=== PATIENT | male | born 1945 | race Caucasian/White ===

== ENCOUNTER → 2017-09-04 09:21 | Outpatient (CLI) | payer MEDICARE, MEDICAID, SELFPAY ==
--- NOTE | 2017-09-04 09:51 | RAD_ITS ---
STUDY: X-RAY - RIGHT SHOULDER REASON FOR EXAM: Male, 72 years old. pt fell on Monday and has been having right shoulder pain since TECHNIQUE: 4 view(s) of the shoulder. COMPARISON: None. FINDINGS: There is mild degenerative arthrosis of the glenohumeral articulation. There is degenerative arthrosis of the acromioclavicular joint without inferior osseous spur formation. Normal acromion. There is elevation of the humerus head consistent with full-thickness rotator cuff tear. Normal humeral head and visualized proximal humerus. The soft tissue structures are unremarkable. Normal visualized pulmonary apex. RAD/Shoulder min 2 Views IMPRESSION: There is mild degenerative arthrosis of the shoulder. There is elevation of the humerus head consistent with full-thickness rotator cuff tear. Electronically Signed: Mariam Quezada MD at 15:08 EDT Tel , Service support ,
== END ==
PROVIDERS: Visit Provider Anesthesiology Pain Medicine
DX: M25.511 Pain in right shoulder (principal); W19.XXXA Unspecified fall, initial encounter
CPT/HCPCS: 73030

== ENCOUNTER 2019-07-26 14:30 | Outpatient (RCR) | payer MEDICARE, MEDICAID, SELFPAY ==
--- NOTE | 2019-05-20 12:32 | HP.PTEVAL_ITS ---
Patient's Visit Information FARZANEH MORTON is a 73 year old M referred to Physical Therapy by Yessenia Morgan MD with a diagnosis of LBP and leg pain. Date of Evaluation: 05/20/19 Physical Therapist: Fuentes Lee PT, ATC - Visit Plan Frequency: 2x /Week Duration: 4 Weeks Plan: Postural edu, SKTC/DKTC, core strengthening ex's, LE strengthening, nustep, and HEP - Subjective Findings: Pt reports he has had LBP for greater than 4 years. Pt reports he has been under pain management for 2 years. Pt reports he has had LB injections which did take care of the pain in his R LE, but notes he continues to have pain down his L LE all the way to the foot. Pt reports his pain is intermittent in nature as he notes increased pain with prolonged ambulation. Pt reports pain will go away if he sits and rests. Pt reports sleep difficulty if he doesnt take his muscle relaxers secondary to pain. Pt reports he had xrays taken a long time ago which revealed degenerative changes. 0/10 pain at rest, 10/10 at worst (prolonged walking on concrete) - Pain LBP Pain Intensity (Out of 10): 0 Pain Intensity Range: 10 - Objective Neuro: B LE sensation is WNL to light touch. B patellar reflex= 2/3. MMT: B LE grossly 4-/5 throughout. Gait: Pt was able to ambulate approximately 200' until needing to sit down secondary to increased leg symptoms. Repeated movements: DKTC/SKTC 10 sec x 3 ea decreased pain. all ext activity increased pain. - Goals Goal 1:: Decrease LBP x 50% to aid with sleep Goal Time Frame: 4-6 Weeks Goal 2:: Increase LE strength x 1 grade to aid with ambulation Goal Time Frame: 4-6 Weeks Goal 3:: Decrease the frequency and intensity of L LE radiculopathy x 25% to aid with ambulation. Goal Time Frame: 4-6 Weeks Goal 4:: I with HEP Goal Time Frame: 4-6 Weeks - Rehabilitation Potential Physical Therapy Diagnosis: Pt has L LE radiculopathy, LBP, and intolerance for prolonged ambulation secondary to DDD Rehabilitation Potential: Good - Anticipated Interventions Patient/Client Instruction: Educate patient on: Condition, Plan of Care For the Purpose of:: To improve self management Therapeutic Exercise to Include: Strength training, Endurance training, Body mechanics, Postural training, Dynamic Lumbar Stabilization For the Purpose of:: To decrease pain, To increase ROM, To improve muscle performance and motor function Cryotherapy (ice pack, ice massage): Yes For the Purpose of:: To decrease pain Thank you for the opportunity to evaluate your patient. For Medicare and Medicare HMO plans, please review the plan of care and approve it. It will need to be FAXED BACK to us at [phone] for Medicare purposes. For Medicare only, by signing this I certify the plan of care. Please let me know if there are questions or concerns regarding this plan of care. Physician Signature: Date:
--- NOTE | 2019-06-24 14:22 | HP.PTREVAL ---
Yessenia Morgan MD, It has been my pleasure to treat FARZANEH MORTON over the last 9 visits for LBP and leg pain. Please see the progress note below for an update on the physical therapy plan of care! Subjective: Pt reports he is very sore today. Objective/Function: LBP is 8/10 on this date secondary to a fall 3 weeks ago. Pt reports L LE radiculopathy is 75% better per pt. B LE MMT 5/5 throughout. Pt is progressing well toward Rx goals but would benefit from further skilled PT to aid with decreasing LBP Plan Plan: Cont with POC 2 times per week for 4 more weeks Goals Goal 1:: Decrease LBP x 50% to aid with sleep Goal Time Frame: 4-6 Weeks Goal Progress: Progressing Goal 2:: Increase LE strength x 1 grade to aid with ambulation Goal Time Frame: 4-6 Weeks Goal Progress: Goal Met Goal 3:: Decrease the frequency and intensity of L LE radiculopathy x 25% to aid with ambulation. Goal Time Frame: 4-6 Weeks Goal Progress: Goal Met Goal 4:: I with HEP Goal Time Frame: 4-6 Weeks Goal Progress: Progressing Anticipated Interventions Patient/Client Instruction: Educate patient on: Condition, Plan of Care For the Purpose of:: To improve self management Therapeutic Exercise to Include: Strength training, Endurance training, Body mechanics, Postural training, Dynamic Lumbar Stabilization For the Purpose of:: To decrease pain, To increase ROM, To improve muscle performance and motor function Cryotherapy (ice pack, ice massage): Yes For the Purpose of:: To decrease pain Please do not hesitate to contact me at [phone] by phone or if you have questions or concerns regarding this new plan of care! Sincerely, Fuentes Lee, PT, ATC
--- NOTE | 2019-07-26 15:03 | HP.PTDCSUM ---
HP - PT D/C Summary It has been my pleasure to treat FARZANEH MORTON under orders from Dr. Yessenia Morgan MD, for the diagnosis of LBP and leg pain for a total of 17 visit(s). Discharge Date: Please see the following information for a summary of their discharge status. - Subjective Subjective: Pt is ready for discharge - Pain LBP Pain Intensity (Out of 10): 1 hands Pain Intensity (Out of 10): 7 - Overall Improvement % Improvement: 85 - Objective Objective/Function: LBP is 1/10 this date. Pt is I with HEP. LE radiculopathy is gone this date. B LE strength 5/5 throughout. Rx goals achieved - Goals Goal 1:: Decrease LBP x 50% to aid with sleep Goal Progress: Goal Met Goal 2:: Increase LE strength x 1 grade to aid with ambulation Goal Progress: Goal Met Goal 3:: Decrease the frequency and intensity of L LE radiculopathy x 25% to aid with ambulation. Goal Progress: Goal Met Goal 4:: I with HEP Goal Progress: Goal Met - Plan Plan: Discharge - D/C Information If there are questions or concerns regarding this patient's physical therapy, please feel free to call me at [phone]. Thank you for the referral of this patient. Sincerely, Fuentes Lee, PT, ATC
== END 2019-07-26 15:23 | disposition home or self-care (01) ==
LOC: PT 14:30
PROVIDERS: Referring Provider Anesthesiology Pain Medicine; Visit Provider Anesthesiology Pain Medicine
DX: M54.9 Dorsalgia, unspecified (principal); M79.606 Pain in leg, unspecified
CPT/HCPCS: 97110; 97161; 97164

== ENCOUNTER 2021-01-27 15:38 | Emergency (ER) | payer OTHER, MEDICARE, MEDICAID, SELFPAY ==
[2021-01-27 15:39] VITALS: BP 140/112; PULSE 75; RESP 20; TEMP 36.7; O2SAT 96; BMI 32.0
[2021-01-27 15:41] VITALS: BP 140/112; PULSE 75; RESP 20; TEMP 36.7; O2SAT 96
--- NOTE | 2021-01-27 15:53 | EKG12_ITS ---
Test Reason : SOB Blood Pressure : / mmHG Vent. Rate : 069 BPM Atrial Rate : 069 BPM P-R Int : 208 ms QRS Dur : 134 ms QT Int : 442 ms P-R-T Axes : 025 077 027 degrees QTc Int : 473 ms Normal sinus rhythm Right bundle branch block Abnormal ECG Confirmed by FLACO CELESTIN, BOBY ([id number]), food editor GABE PERALTA ([id number]) on 02/01/2021 10:16:15 AM Referred By: ELÍAS Confirmed By:BOBY SAM MD
[2021-01-27 15:57] VITALS: O2SAT 95
--- NOTE | 2021-01-27 16:00 | NURSING ---
NO OLD EKGS
--- NOTE | 2021-01-27 16:15 | EDS_ITS ---
HPI History of Present Illness Chief Complaint: Shortness of Breath Informant: patient Narrative Narrative: Patient is a 75-year-old male with history of prostate cancer and COVID-19 infection in May 2020, is vaccinated, unsteady gait, hypertension, anxiety and hyperlipidemia presenting for shortness of breath. Patient's been having worsening shortness of breath over the past 3 to 4 days. His notes that he seems more short of breath at night and is wheezing. Patient states he has been coughing up mucus. He states his ribs are sore because he is coughing. Patient had spirometry testing earlier this month which apparently was normal per patient report. Patient denies any sick contacts. Does report a runny nose. Denies any nasal congestion. States his throat is slightly sore from all the coughing. Denies any chest pain or leg swelling. No other complaints at this time. [facility] Medical History Hypertension Home Medications doxycycline hyclate 100 mg PO BID #14 cap 01/27/21 [Rx Last Taken Unknown] prednisone 40 mg PO DAILY #10 tab 01/27/21 [Rx Last Taken Unknown] Allergy/AdvReac Type Severity Reaction Status Date / Time No Known Allergies Allergy Verified 01/27/21 15:41 Social History Smoking Status: Unknown if ever smoked ROS ROS ED Constitutional Constitutional ED: Denies chills or fever(s) Eyes Eyes: Denies change in vision ENT ENT ED: Reports rhinorrhea and sore throat; Denies ear pain Cardiovascular Cardiovascular: Denies chest pain, orthopnea or palpitations Respiratory/Chest Respiratory/Chest: Reports cough, dyspnea, dyspnea on exertion and sputum; Denies orthopnea Gastrointestinal Gastrointestinal: Denies abdominal pain, diarrhea, nausea or vomiting Genitourinary Genitourinary ED: Denies dysuria Musculoskeletal Musculoskeletal: Denies arthralgias or myalgias Integumentary Denies rash Neurologic Neurologic: Denies headache(s) or weakness Psychiatric Psychiatric: Denies anxiety or depression EXAM Physical Exam Const Vital Signs: 01/27/21 15:39 01/27/21 15:41 01/27/21 15:57 Temperature 98.1 F 98.1 F Temperature Source Temporal Temporal Pulse Rate 75 75 Respiratory Rate 20 H 20 H Respiratory Effort Non-Labored Short of Breath Respiratory Depth Normal Respiratory Pattern Normal Blood Pressure 140/112 H 140/112 H Blood Pressure Mean 121 121 Pulse Ox 96 96 Oxygen Delivery Method Room Air Room Air Room Air 01/27/21 17:51 01/27/21 18:19 Temperature Temperature Source Pulse Rate 67 73 Respiratory Rate 24 H 12 Respiratory Effort Respiratory Depth Respiratory Pattern Blood Pressure 111/81 H 145/81 H Blood Pressure Mean 91 102 Pulse Ox 96 97 Oxygen Delivery Method Room Air Room Air Positive well nourished and well developed General Appearance ED: well developed HEENT Reports TM's clear and moist mucous membranes Negative for atraumatic Tympanic Membrane ED: Yes TM's clear Eyes PERRL Neck no lymphadenopathy, supple and no JVD Resp normal respiratory effort Auscultation: rhonchi and diminished lung sounds bilateral (bases); Negative for rales or wheezes Cardio regular rate, regular rhythm and no murmurs GI non-tender and non-distended Palpation: soft Extremity normal to inspection General Extremety ED: Negative for edema General Extremity: Negative for edema Neuro oriented x3 and CN's II-XII intact bilaterally Sensorium / Orientation: alert Motor Exam: strength 5/5 throughout Psych mental status grossly normal Thought Process: normal thought process Skin Lesions: no lesions Rashes: no rashes MDM MDM MDM Narrative Medical decision making narrative: Patient is evaluated for worsening cough and shortness of breath over the past 3 to 4 days. He appears nontoxic in no acute distress. He does have rales on exam. Chest x-ray shows hyperinflation and possible superimposed acute inflammatory changes in the lower lobes. His work- up is otherwise normal with normal HIDA study troponin, BNP and white blood cell count. No acute electrolyte abnormalities. I do not think this is cardiogenic in nature. Patient will be treated for bronchitis with steroids and also covered with doxycycline as he does have these inflammatory changes for the potential of an early pneumonia. He is ambulated emergency room does not have any hypoxia. Patient is agreeable with this plan of care. He is counseled return precautions. He is discharged home in stable condition. Lab Data Labs: Laboratory Results - last 24 hr 01/27/21 01/27/21 01/27/21 16:10 16:10 16:10 WBC 9.5 RBC 4.44 L Hgb 13.9 Hct 41.5 MCV 93.5 MCH 31.3 MCHC 33.5 RDW Std Deviation 44.9 H RDW Coeff of Yuki 13.1 Plt Count 269 MPV 9.4 Immature Gran % (Auto) 0.700 Neut % (Auto) 57.5 Lymph % (Auto) 19.8 Darke % (Auto) 10.5 H Eos % (Auto) 10.6 H Baso % (Auto) 0.9 Absolute Neuts (auto) 5.4 Absolute Lymphs (auto) 1.88 Nucleated RBC % 0 Sodium 140 Potassium 3.9 Chloride 108 H Carbon Dioxide 27.0 Anion Gap 5 BUN 14 Creatinine 1.08 Estim Creat Clear Calc 59.14 Est GFR (MDRD) Af Amer 85 Est GFR (MDRD) Non-Af 70 BUN/Creatinine Ratio 13.0 Glucose 106 Calcium 9.0 Troponin I High Sens 7 B-Natriuretic Peptide 27.8 Radiography Chest X-Ray - ED: 1 View, Read by ED Physician and Read by Radiologist Diagnostic Testing: Radiology Impression Chest X-Ray 01/27/21 16:45 IMPRESSION: Hyperinflation and possibly superimposed acute inflammatory changes in the lower lobes. Clinical correlation recommended Electronically Signed: Chavo Anderson MD at 16:58 EDT , Service support , Rhythm Strip Rhythm Strip: Sinus Rhythm Rate: 69 Ectopy: None EKG Initial EKG: Attestation: I personally reviewed and interpreted this EKG as follows: Interpretation: Sinus Rhythm and RBBB Comments: Normal sinus rhythm rate of 69 Mild right axis Nonspecific T wave inversion in 3 and V1 IN interval 208 QRS 134 QTc 4373 Prior EKG tracings: not available for review Discharge Plan Triage Chief Complaint: Shortness of Breath ED Provider: Gaye Bacon Dx/Rx/DC Orders Clinical Impression: Acute bronchitis Instructions: ED Bronchitis with Wheezing (Adult), ED Pneumonia (Adult) Prescriptions: New doxycycline hyclate 100 mg capsule 100 mg PO BID Qty: 14 RF: 0 prednisone 20 mg tablet 40 mg PO DAILY Qty: 10 RF: 0 [facility] [Primary [facility] Provider] - Activity Restrictions/Additional Instructions: I suspect you have bronchitis. The steroid should help with your cough. It is possible you have early pneumonia which is why you are getting started on antibiotics. Disposition Disposition: Home, Self Care
[2021-01-27 16:21] LABS: Absolute Lymphocyte Count 1.88 X10^3/uL (0.83-4.51); Absolute Neutrophil Count 5.4 X10^3/uL (2.0-7.7); Basophil# 0.09 X10^3/uL; Basophil% 0.9 % (0-1); Eosinophil# 1.01 X10^3/uL; Eosinophils% 10.6 % (0-5); Hematocrit 41.5 % (40-54); Hemoglobin 13.9 g/dL (13.0-16.5); Lymphocyte # 1.88 X10^3/ul (0.83-4.51); Lymphocyte % 19.8 % (19-41); Mean Corp Hgb Conc 33.5 g/dL (32-36); Mean Corpuscular Hgb 31.3 pg (27.0-32.0); Mean Corpuscular Volume 93.5 fL (80-94); Mean Platelet Vol. 9.4 fl (6.2-12.0); Monocyte% 10.5 % (0-10); NRBC Flagged by Analyzer 0 % (0-5); Neutrophil # 5.44 X10^3/uL (2.7-7.7); Neutrophil % 57.5 % (47-70); Platelet Count 269 K/mm3 (150-450); RBC Distribution Width CV 13.1 % (11.6-14.6); RBC Distribution Width SD 44.9 fl (35.1-43.9); Red Blood Count 4.44 M/mm3 (4.6-6.2); White Blood Count 9.5 K/mm3 (4.4-11.0)
[2021-01-27 16:36] LABS: Anion Gap 5 (5-15); BUN 14 mg/dL (7-18); Chloride 108 mmol/L (98-107); Creatinine, Serum 1.08 mg/dL (0.70-1.30); EST Glomerular Filtration Rate 70 mL/min (>60); Est Glom Filt Rate - Afr Amer 85 mL/min (>60); Estimated Creatinine Clearance 59.14 ml/min; Glucose 106 mg/dL (74-106); Potassium 3.9 mmol/L (3.5-5.1); Sodium Level 140 mmol/L (136-145); Troponin-I HS 7 pg/mL (3.0-78.0)
--- NOTE | 2021-01-27 16:45 | RAD_ITS ---
STUDY: X-RAY CHEST REASON FOR EXAM: Male, 75 years old. sob TECHNIQUE: AP portable COMPARISON: None. FINDINGS: Lungs are hyperinflated. There is interstitial thickening bilaterally more pronounced in the lower lobes with patchy areas of increased density possibly representing coexisting inflammatory disease.. There is no demonstrated pleural abnormality. Normal size heart. Normal mediastinum and char. Normal visualized pulmonary arteries. Mildly calcified and tortuous aortic arch and descending thoracic aorta. Dorsal spine demonstrates scoliosis and degenerative change. Normal visualized ribs, clavicles, and shoulders. There is no demonstrated abnormality of the visualized soft tissue structures of the upper abdomen. RAD/Chest 1 View (Portable) IMPRESSION: Hyperinflation and possibly superimposed acute inflammatory changes in the lower lobes. Clinical correlation recommended Electronically Signed: Chavo Anderson MD at 16:58 EDT , Service support ,
[2021-01-27 16:56] LABS: BNP,B-Type NATRIURETIC PEPTIDE 27.8 pg/mL (0-100)
[2021-01-27 17:51] VITALS: BP 111/81; PULSE 67; RESP 24; O2SAT 96
[2021-01-27 18:19] VITALS: BP 145/81; PULSE 73; RESP 12; O2SAT 97
[2021-01-27 18:55] VITALS: RESP 16
== END 2021-01-27 18:56 | disposition home or self-care (01) ==
PROVIDERS: Emergency Provider Emergency Medicine
DX: J20.9 Acute bronchitis, unspecified (principal); Z20.822 Contact with and (suspected) exposure to COVID-19; I10 Essential (primary) hypertension; E78.5 Hyperlipidemia, unspecified; Z85.46 Personal history of malignant neoplasm of prostate; Z86.16 Personal history of COVID-19
CPT/HCPCS: 71045; 80048; 83880; 84484; 85025; 87426; 93005; 99285

== ENCOUNTER 2021-05-12 16:41 | Emergency (ER) | payer OTHER, SELFPAY ==
[2021-05-12] VITALS (7 sets, daily range): BP systolic 118–153; BP diastolic 69–76; PULSE 74–88; RESP 17–20; TEMP 36.4–36.7; O2SAT 94–96; BMI 31.4
--- NOTE | 2021-05-12 16:58 | ED.VIS.DYS ---
HPI History of Present Illness Chief Complaint: Cough Informant: patient and spouse/S.O. Onset/Context/Timing Onset: Weeks (Onset 1 week ago. Got better and has gotten worse) Context: sudden Timing: Continuous and Waxes and wanes Quality: Positive for Dyspnea on exertion and Wheezing; Negative for Orthopnea and PND Current Severity: Mild Maximum Severity: Moderate Worsened by: Exertion and Coughing; Not Worsened By Lying flat Relieved by: Nothing Associated Symptoms cough and white sputum; Negative for rhinorrhea, post nasal drip, ear pain, fever, sore throat, subjective, chills or sweats Chest Pain: Positive for None Narrative Narrative: Patient is an elderly male with history of asthma who has not smoked since 1959 who presents with cough, wheezing and dyspnea on exertion. Patient had Covid 1 year ago. He has been vaccinated and has had a booster. He denies fever or chills. He denies headache, visual, ocular auditory symptoms. He denies rhinorrhea or postnasal drainage. He denies sore throat. He denies chest pain. He does report cough productive of white-colored sputum and dyspnea on exertion. He denies orthopnea or PND. He denies vomiting or diarrhea. He denies abdominal pain. He denies dysuria, frequency, urgency or hematuria. He denies history of VTE. He is not on an anticoagulant. PE Risk Factors: Negative for Cancer (Remote), OCP + Smoking + > 35, Prior DVT or PE, Recent immobilization, Recent surgery and Recent travel Prior similar symptoms: Yes Recent Illness/Hospitalization: No PFSH PFSH Medical History COVID-19 Hypertension Prostate cancer Home Medications Cbd Gummies 300 mg PO/SL DAILY 05/12/21 [History Last Taken 05/11/21] Cbd Oil 300 mg PO/SL DAILY 05/12/21 [History Last Taken 05/11/21] ascorbic acid (vitamin C) 500 mg PO DAILY 05/12/21 [History Last Taken 05/12/21] aspirin [Aspirin Low-Strength] 81 mg PO DAILY 05/12/21 [History Last Taken 05/12/21] budesonide-formoterol [Symbicort] 2 inh INHALATION BID 05/12/21 [History Last Taken 05/11/21] cholecalciferol (vitamin D3) 50 mcg PO DAILY 05/12/21 [History Last Taken 05/12/21] cyclobenzaprine [Flexeril] 10 mg PO QHS 05/12/21 [History Last Taken 05/11/21] doxycycline monohydrate 100 mg PO BID #14 capsule 05/12/21 [Rx Last Taken Unknown] fluticasone propionate [Flonase Allergy Relief] 1 spray INTRANASAL BID 05/12/21 [History Last Taken 05/12/21] hydrochlorothiazide 25 mg PO DAILY 05/12/21 [History Last Taken 05/12/21] omeprazole 20 mg PO DAILY 05/12/21 [History Last Taken 05/11/21] pravastatin 80 mg PO QHS 05/12/21 [History Last Taken 05/11/21] prednisone 60 mg PO DAILY #15 tablet 05/12/21 [Rx Last Taken Unknown] pyridoxine (vitamin B6) [Vitamin B-6] 100 mg PO DAILY 05/12/21 [History Last Taken 05/12/21] sertraline 150 mg PO QHS 05/12/21 [History Last Taken 05/11/21] Allergy/AdvReac Type Severity Reaction Status Date / Time No Known Allergies Allergy Verified 05/12/21 16:50 Surgical History H/O neck surgery Social History (Updated 05/12/21 @ 17:[address] Frank Donato MD) household members: significant other Smoking Status: Former smoker substance use type: does not use ROS ROS ED Constitutional Constitutional ED: Denies chills, fever(s), sweats or weight loss Eyes Eyes: Denies blurry vision, change in vision or diplopia ENT ENT ED: Denies ear pain, rhinorrhea or sore throat Cardiovascular Cardiovascular: Denies chest pain, orthopnea, palpitations, paroxysmal nocturnal dyspnea or racing heartbeat Respiratory/Chest Respiratory/Chest: Reports cough, dyspnea, dyspnea on exertion and sputum; Denies orthopnea or paroxysmal nocturnal dyspnea Gastrointestinal Gastrointestinal: Denies abdominal pain, constipation, diarrhea, melena, nausea or vomiting Genitourinary Genitourinary ED: Denies dysuria, hematuria or urinary frequency Musculoskeletal Musculoskeletal: Denies arthralgias, back pain, myalgias or neck pain Integumentary Denies rash Neurologic Neurologic: Denies headache(s), paresthesias or weakness Endocrine Endocrinology: Denies polydipsia, polyphagia or polyuria Hematologic/Lymphatic Hematologic/Lymphatic: Denies easy bleeding or easy bruising EXAM Physical Exam Const Vital Signs: 05/12/21 16:44 05/12/21 16:53 05/12/21 17:11 Temperature 97.6 F L 98.1 F Temperature Source Temporal Temporal Pulse Rate 77 78 74 Respiratory Rate 18 18 18 Respiratory Effort Short of Breath Respiratory Pattern Normal Blood Pressure 153/76 H 118/76 Blood Pressure Mean 101 90 Pulse Ox 96 96 Oxygen Delivery Method Room Air Room Air 05/12/21 17:17 05/12/21 18:39 05/12/21 19:09 Temperature Temperature Source Pulse Rate 76 Respiratory Rate 17 Respiratory Effort Respiratory Pattern Blood Pressure Blood Pressure Mean Pulse Ox 95 95 Oxygen Delivery Method Room Air Room Air Positive well nourished, well developed and obese General Appearance ED: well developed and NAD; Negative for pallor Nutritional Appearance: obese HEENT Reports TM's clear and moist mucous membranes HEENT Narrative: There is patent. Ears normal. atraumatic Tympanic Membrane ED: Yes TM's clear Eyes PERRL and EOMs intact bilaterally General Eye ED: Negative for pale conjunctiva or scleral icterus Neck no lymphadenopathy, supple, no meningeal signs and no JVD Resp normal respiratory effort Auscultation: wheezes expiratory wheezes, scattered wheezes and throughout Cardio regular rate, regular rhythm, S1 normal heart sound, S2 normal heart sound and no murmurs GI non-tender, non-distended and no masses Auscultation: normoactive bowel sounds Palpation: soft and tender Back/Spine no CVA tenderness and normal to inspection Extremity normal to inspection Extremity Narrative: Patient does have hair on his toes. General Extremety ED: Negative for edema or tenderness General Extremity: Negative for edema Neuro oriented x3 and CN's II-XII intact bilaterally Neuro Narrative: Patient moves all extremities. Sensorium / Orientation: alert Psych mental status grossly normal Thought Process: normal thought process Skin no wounds General Skin Exam: Negative for jaundice or pallor Lesions: no lesions Rashes: no rashes MDM MDM MDM Narrative Medical decision making narrative: With history of Covid, full vaccine and booster to help patient's symptoms are due to Covid. His significant other is not ill and had no ill contacts. He may have influenza. He states he was not immunized for influenza. He does see Dr. Jayro Conte at [facility] for his asthma/lung problems. He denies history of VTE. He denies leg pain, swelling or discoloration. He did report pain left calf after walking briskly 600 feet. Of note he has palpable pulses and he does have hair on his toes. This may represent a viral illness versus pneumonia versus influenza. Chest x-ray, work and influenza screen was obtained. Since patient has wheezing throughout with increased extra phase he was treated with Solu-Medrol, DuoNeb and albuterol. Lab Data Attestation: I reviewed the patient's lab results. Lab results narrative: White count is normal. Patient does not have any sirs criteria. Chest x-ray does reveal possible infiltrate on the right versus atelectasis there appears to be discoid atelectasis on the left. Since he improved with aerosol is not hypoxic not tachycardic or tachypneic will discharge with prescription for doxycycline, burst of prednisone follow-up with his primary care physician Dr. Garg. Labs: Laboratory Results - last 24 hr 05/12/21 05/12/21 17:05 17:05 WBC 8.6 RBC 4.62 Hgb 14.4 Hct 42.7 MCV 92.4 MCH 31.2 MCHC 33.7 RDW Std Deviation 44.9 H RDW Coeff of Yuki 13.2 Plt Count 275 MPV 9.2 Immature Gran % (Auto) 0.600 Neut % (Auto) 55.4 Lymph % (Auto) 20.7 [place] % (Auto) 10.1 H Eos % (Auto) 12.4 H Baso % (Auto) 0.8 Absolute Neuts (auto) 4.8 Absolute Lymphs (auto) 1.79 Nucleated RBC % 0 Sodium 141 Potassium 3.6 Chloride 107 Carbon Dioxide 27.0 Anion Gap 7 BUN 11 Creatinine 0.96 Estim Creat Clear Calc 66.54 Est GFR (MDRD) Af Amer 97 Est GFR (MDRD) Non-Af 80 BUN/Creatinine Ratio 11.4 Glucose 129 H Calcium 8.8 Radiography Chest X-Ray - ED: 1 View (Chronic changes with possible infiltrate right lower lobe with discoid atelectasis left lower lobe. Cardiac silhouette and size normal. Perihilar regions unremarkable. Fossa structures are unremarkable.) and Read by ED Physician Diagnostic Testing: Clinical Impression(s) from Imaging Studies Chest X-Ray 05/12/21 18:48 IMPRESSION: There is bilateral infiltrate / atelectasis. Electronically Signed: Fuentes Gusman MD at 19:13 EST , Service support , Rhythm Strip Rhythm Strip: Sinus Rhythm Rate: 79 Ectopy: None Discharge Plan Triage Chief Complaint: Cough ED Provider: Frank Donato Dx/Rx/DC Orders Clinical Impression: Community acquired pneumonia, Acute exacerbation of chronic obstructive pulmonary disease, Acute bronchospasm Instructions: ED COPD Flare, ED Pneumonia (Adult) Prescriptions: New prednisone 20 MG tablet 60 mg PO DAILY Qty: 15 RF: 0 doxycycline monohydrate 100 MG capsule 100 mg PO BID Qty: 14 RF: 0 No Action cyclobenzaprine [Flexeril] 10 mg Tablet 10 mg PO QHS RF: 0 sertraline 100 mg tablet 150 mg PO QHS RF: 0 pravastatin 80 mg tablet 80 mg PO QHS RF: 0 ascorbic acid (vitamin C) 500 mg Tablet 500 mg PO DAILY RF: 0 omeprazole 20 mg capsule,delayed release(DR/EC) 20 mg PO DAILY RF: 0 hydrochlorothiazide 25 mg tablet 25 mg PO DAILY RF: 0 pyridoxine (vitamin B6) [Vitamin B-6] 100 mg Tablet 100 mg PO DAILY RF: 0 fluticasone propionate [Flonase Allergy Relief] 50 mcg/actuation [place],Suspension 1 spray INTRANASAL BID RF: 0 budesonide-formoterol [Symbicort] 160-4.5 mcg/actuation HFA aerosol inhaler 2 inh INHALATION BID RF: 0 cholecalciferol (vitamin D3) 50 mcg (2,000 unit) Capsule 50 mcg PO DAILY RF: 0 Cbd Gummies 300 mg PO/SL DAILY RF: 0 Cbd Oil 300 mg PO/SL DAILY RF: 0 aspirin [Aspirin Low-Strength] 81 mg Tablet,Delayed Release (Dr/Ec) 81 mg PO DAILY RF: 0 [facility] Referrals: Briana Riley MD [STAFF PHYSICIAN] - 3-5 Days if not improving [facility] [Primary Care Provider] - Disposition Disposition: Home, Self Care
[2021-05-12] MEDS: MethylPREDNISolone 125 MG/2 ML Vial IV (17:11)
[2021-05-12] MEDS: Albuterol 2.5 MG/3 ML VIAL.NEB. INHALATION ×3 (17:11→18:38)
[2021-05-12] MEDS: Ipratropium/Albuterol Sulfate 3 ML AMPUL.NEB INHALATION (17:11)
[2021-05-12 17:15] LABS: Absolute Lymphocyte Count 1.79 X10^3/uL (0.83-4.51); Absolute Neutrophil Count 4.8 X10^3/uL (2.0-7.7); Basophil# 0.07 X10^3/uL; Basophil% 0.8 % (0-1); Eosinophil# 1.07 X10^3/uL; Eosinophils% 12.4 % (0-5); Hematocrit 42.7 % (40-54); Hemoglobin 14.4 g/dL (13.0-16.5); Lymphocyte # 1.79 X10^3/ul (0.83-4.51); Lymphocyte % 20.7 % (19-41); Mean Corp Hgb Conc 33.7 g/dL (32-36); Mean Corpuscular Hgb 31.2 pg (27.0-32.0); Mean Corpuscular Volume 92.4 fL (80-94); Mean Platelet Vol. 9.2 fl (6.2-12.0); Monocyte# 0.87 X10^3/uL; Monocyte% 10.1 % (0-10); NRBC Flagged by Analyzer 0 % (0-5); Neutrophil # 4.79 X10^3/uL (2.7-7.7); Neutrophil % 55.4 % (47-70); Platelet Count 275 K/mm3 (150-450); RBC Distribution Width CV 13.2 % (11.6-14.6); RBC Distribution Width SD 44.9 fl (35.1-43.9); Red Blood Count 4.62 M/mm3 (4.6-6.2); White Blood Count 8.6 K/mm3 (4.4-11.0)
[2021-05-12 17:35] LABS: Anion Gap 7 (5-15); BUN 11 mg/dL (7-18); BUN/Creat Ratio 11.4 RATIO (10-20); Calcium,Total 8.8 mg/dL (8.5-10.1); Chloride 107 mmol/L (98-107); Creatinine, Serum 0.96 mg/dL (0.70-1.30); EST Glomerular Filtration Rate 80 mL/min (>60); Est Glom Filt Rate - Afr Amer 97 mL/min (>60); Estimated Creatinine Clearance 66.54 ml/min; Glucose 129 mg/dL (74-106); Potassium 3.6 mmol/L (3.5-5.1); Sodium Level 141 mmol/L (136-145)
--- NOTE | 2021-05-12 18:48 | RAD_ITS ---
STUDY: X-RAY CHEST REASON FOR EXAM: Male, 75 years old. CHEST PAIN Productive white cough, dyspnea and wheezing throu TECHNIQUE: XR Chest 1 View COMPARISON: 8.25.21 FINDINGS: There is no demonstrated pleural abnormality. There is bilateral infiltrate / atelectasis. Normal size heart. Normal mediastinum and char. Normal visualized pulmonary arteries. There is atherosclerotic calcification of the aortic arch with tortuosity. There are diffuse degenerative changes of the visualized thoracic spine. There is degenerative osteoarthritis of the bilateral shoulders. There is no demonstrated abnormality of the visualized soft tissue structures of the upper abdomen. RAD/Chest 1 View (Portable) IMPRESSION: There is bilateral infiltrate / atelectasis. Electronically Signed: Fuentes Gusman MD at 19:13 EST , Service support ,
[2021-05-12] MEDS: Doxycycline 100 MG CAPSULE PO (20:02)
== END 2021-05-12 20:19 | disposition home or self-care (01) ==
PROVIDERS: Emergency Provider Emergency Medicine
DX: J44.0 Chronic obstructive pulmonary disease with (acute) lower respiratory infection (principal); J18.9 Pneumonia, unspecified organism; J44.1 Chronic obstructive pulmonary disease with (acute) exacerbation; I10 Essential (primary) hypertension; Z79.82 Long term (current) use of aspirin; Z79.52 Long term (current) use of systemic steroids; Z79.51 Long term (current) use of inhaled steroids; Z79.899 Other long term (current) drug therapy; Z86.16 Personal history of COVID-19; Z85.46 Personal history of malignant neoplasm of prostate; Z87.891 Personal history of nicotine dependence
CPT/HCPCS: 71045; 80048; 85025; 87804; 94640; 96374; 99285

== ENCOUNTER 2022-01-09 20:36 | Emergency (ER) | payer MEDICARE, MEDICAID, SELFPAY ==
[2022-01-09 20:36] VITALS: BP 140/111; PULSE 83; RESP 16; TEMP 37.6; O2SAT 95; BMI 33.7
--- NOTE | 2022-01-09 21:00 | EKG12_ITS ---
Test Reason : weakness Blood Pressure : / mmHG Vent. Rate : 082 BPM Atrial Rate : 082 BPM P-R Int : 248 ms QRS Dur : 132 ms QT Int : 418 ms P-R-T Axes : 024 046 -01 degrees QTc Int : 488 ms Sinus rhythm with 1st degree A-V block Right bundle branch block Abnormal ECG Confirmed by SOPHIA CELESTIN, LANIE ([id number]), editor managing director NIRANJAN BISWAS ([id number]) on 01/11/2022 9:19:04 AM Referred By: Confirmed By:LANIE CORTES MD
--- NOTE | 2022-01-09 21:01 | EDS_ITS ---
HPI History of Present Illness Chief Complaint: General Illness Narrative Narrative: 76-year-old male presenting with multiple complaints. He states that he has had some aches and pains throughout his body for about a week. He also complains of a mild headache. Denies dizziness or lightheadedness. Denies any head trauma. He is not on any anticoagulation. Patient reports that he has not taken any Tylenol or ibuprofen over the course of the last week because he is unsure if he can mix it with his current medications. He did go to urgent care last week and was tested for COVID and this was negative. Patient states he is not getting any better. He does report that he was on meloxicam but is out of this. He also complains of a cough which is worsened over the last 2 days and shortness of breath on exertion. He does however state that he is always short of breath on exertion and this is not a new symptom. He is not have any chest pain. He is eating and drinking normally. He is making normal urine and stool. He has not had any fevers. [facility] Medical History COPD (chronic obstructive pulmonary disease) COVID-19 Hypertension Prostate cancer Home Medications aspirin 81 mg tablet,delayed release 81 mg PO DAILY HEALTH MAINTENANCE 05/12/21 [History Last Taken 05/12/21] budesonide-formoterol HFA 160 mcg-4.5 mcg/actuation aerosol inhaler (Symbicort) 2 inh inhalation BID COPD 05/12/21 [History Last Taken 05/11/21] cholecalciferol (vitamin D3) 50 mcg (2,000 unit) capsule 50 mcg PO DAILY SUPPLEMENT 05/12/21 [History Last Taken 05/12/21] cyclobenzaprine 10 mg tablet 10 mg PO TID PRN muscle spasms 05/12/21 [History Last Taken 05/11/21] hydrochlorothiazide 25 mg tablet 25 mg PO DAILY BP 05/12/21 [History Last Taken 05/12/21] omeprazole 20 mg capsule,delayed release 20 mg PO DAILY GERD 05/12/21 [History Last Taken 05/11/21] pravastatin 80 mg tablet 80 mg PO QHS CHOLESTEROL 05/12/21 [History Last Taken 05/11/21] sertraline 100 mg tablet 150 mg PO QHS DEPRESSION 05/12/21 [History Last Taken 05/11/21] ammonium lactate 12 % topical cream 1 applic topical DAILY dry skin 01/09/22 [History Last Taken Unknown] garlic extract 500 mg capsule 500 mg PO BID supplement 01/09/22 [History Last Taken Unknown] meloxicam 7.5 mg tablet 1 tab PO DAILY arthritis 01/09/22 [History Last Taken Unknown] meloxicam 7.5 mg tablet 7.5 mg PO DAILY #20 tabs 01/09/22 [Rx Last Taken Unknown] multivitamin 1 tab PO DAILY supplement 01/09/22 [History Last Taken Unknown] zinc sulfate 66 mg tablet (Zinc-15) 66 mg PO DAILY supplement 01/09/22 [History Last Taken Unknown] Allergy/AdvReac Type Severity Reaction Status Date / Time gabapentin Allergy Other Verified 01/09/22 20:41 Surgical History H/O neck surgery Social History household members: significant other Smoking Status: Former smoker substance use type: does not use ROS ROS ED Constitutional Constitutional ED: Reports chills; Denies fever(s) Eyes Eyes: Denies change in vision or diplopia ENT ENT ED: Denies rhinorrhea or sore throat Cardiovascular Cardiovascular: Denies chest pain or palpitations Respiratory/Chest Respiratory/Chest: Reports cough, dyspnea and dyspnea on exertion Gastrointestinal Gastrointestinal: Denies abdominal pain or constipation Genitourinary Genitourinary ED: Denies dysuria Musculoskeletal Musculoskeletal: Denies arthralgias Integumentary Denies abscess Neurologic Neurologic: Reports headache(s); Denies paresthesias or weakness EXAM Physical Exam Const Vital Signs: 01/09/22 20:36 01/09/22 20:52 01/09/22 21:14 Temperature 99.7 F H Temperature Source Temporal Pulse Rate 83 Respiratory Rate 16 Respiratory Effort Normal Respiratory Pattern Normal Blood Pressure 140/111 H Blood Pressure Mean 120 Pulse Ox 95 Oxygen Delivery Method Room Air Room Air Positive well nourished General Appearance ED: NAD; Negative for pallor HEENT Reports moist mucous membranes Negative for trauma Eyes PERRL and EOMs intact bilaterally General Eye ED: Negative for pale conjunctiva or scleral icterus Chest Wall inspection of chest normal Resp normal respiratory effort and clear to auscultation bilaterally Auscultation: Negative for rales, rhonchi or wheezes Cardio regular rate and regular rhythm GI normal to inspection, nondistended, normoactive bowel sounds Back/Spine no CVA tenderness Neuro oriented x3, CN's II-XII intact bilaterally and no sensory deficits noted Sensorium / Orientation: alert and orientation impaired Psych mental status grossly normal Skin no wounds General Skin Exam: Negative for jaundice or pallor MDM MDM MDM Narrative Medical decision making narrative: Patient presenting with multiple complaints. 1 of which is a headache. This is low-grade and he does not have any symptoms of photophobia or phonophobia. He is not having dizziness or lightheadedness. Is not had any head trauma. He has no focal neurologic deficits. Patient has not treated this with Tylenol or ibuprofen. I do not believe he needs a head CT based on his symptoms. Patient is also complaining of a cough and shortness of breath which she has chronically. He states he can walk about 10 to 12 feet currently. He reports that he usually has to use an electric chair when he goes to the grocery store at [facility]. He does not believe the shortness of breath is new but he does express that he has a mild cough. He was already tested for COVID-19 7 days ago and this was negative. He is not hypoxic, tachypneic, tachycardic. His lungs are clear to auscultation. He is not hypoxic, tachypneic, tachycardic. Chest x-ray on my interpretation is no acute cardiopulmonary process and the radiolo gist agree. When I asked the patient what his greatest concern is he points to his elbows into his hands where he has chronic arthritis. He was previously on meloxicam but is out of this. Since he is not supplementing it with any Tylenol or ibuprofen I suspect this is why this is bothering him. I do not believe he needs any imaging of his extremities. An EKG was obtained for the dyspnea on ex ertion and this is normal sinus rhythm with a first-degree AV block at a ventricular rate of 82 bpm without sign of ischemic change on my interpretation. CBC and BMP are unremarkable. High-sensitivity troponin is 5. I will start the patient back on his meloxicam. He is to follow-up with his PCP outpatient. Return precautions were discussed. Impression: 1. Arthralgias 2. Dyspnea 3. Weakness 4. Headache Lab Data Attestation: I reviewed the patient's lab results. Labs: Laboratory Results - last 24 hr 01/09/22 01/09/22 21:14 21:14 WBC 8.6 RBC 4.10 L Hgb 13.0 Hct 37.6 L MCV 91.7 MCH 31.7 MCHC 34.6 RDW Std Deviation 44.3 H RDW Coeff of Yuki 13.1 Plt Count 229 MPV 9.1 Immature Gran % (Auto) 0.500 Neut % (Auto) 75.7 H Lymph % (Auto) 7.6 L [place] % (Auto) 12.2 H Eos % (Auto) 3.4 Baso % (Auto) 0.6 Absolute Neuts (auto) 6.5 Absolute Lymphs (auto) 0.65 L Nucleated RBC % 0 Sodium 135 L Potassium 4.3 Chloride 107 Carbon Dioxide 23.0 Anion Gap 5 BUN 16 Creatinine 1.14 Estim Creat Clear Calc 51.67 Est GFR (MDRD) Af Amer 80 Est GFR (MDRD) Non-Af 66 BUN/Creatinine Ratio 14.0 Glucose 102 Calcium 8.6 Troponin I High Sens 5 Radiography Diagnostic Testing: Clinical Impression(s) from Imaging Studies Chest X-Ray 01/09/22 21:20 IMPRESSION: Poor inspiration with some bibasilar atelectasis. Electronically Signed: Srinivasan Vergara MD at 21:51 EDT Reading Location ID and State: [facility] / MD Tel , Service support , Discharge Plan Triage Chief Complaint: General Illness ED Provider: Cy Acevedo Dx/Rx/DC Orders Instructions: Self-Care for Headaches, Arthritis: Exercise, ED Dyspnea Prescriptions: New meloxicam 7.5 mg tablet 7.5 mg PO DAILY Qty: 20 0RF No Action cyclobenzaprine [Flexeril] 10 mg Tablet 10 mg PO TID PRN (Reason: muscle spasms) sertraline 100 mg tablet 150 mg PO QHS pravastatin 80 mg tablet 80 mg PO QHS omeprazole 20 mg capsule,delayed release(DR/EC) 20 mg PO DAILY hydrochlorothiazide 25 mg tablet 25 mg PO DAILY budesonide-formoterol [Symbicort] 160-4.5 mcg/actuation HFA aerosol inhaler 2 inh INHALATION BID cholecalciferol (vitamin D3) 50 mcg (2,000 unit) Capsule 50 mcg PO DAILY aspirin [Aspirin Low-Strength] 81 mg Tablet,Delayed Release (Dr/Ec) 81 mg PO DAILY multivitamin Tablet 1 tab PO DAILY meloxicam 7.5 mg tablet 1 tab PO DAILY Label Comments: TAKE 1 TABLET BY MOUTH ONCE DAILY WITH FOOD ammonium lactate 12 % cream 1 applic TOPICAL DAILY Zinc-15 66 mg Tablet 66 mg PO DAILY garlic extract 500 mg Capsule 500 mg PO BID [facility] [[facility] Provider[facility] - Disposition Disposition: Home, Self Care
[2022-01-09] MEDS: Ketorolac 15 MG/ML Vial IV (21:15)
--- NOTE | 2022-01-09 21:20 | RAD_ITS ---
STUDY: X-RAY CHEST REASON FOR EXAM: Male, 76 years old. chest pain TECHNIQUE: Single AP portable view of the chest. COMPARISON: 05/12/2021 FINDINGS: Poor inspiration with some bibasilar atelectasis. There is no demonstrated pleural abnormality. Normal size heart. Normal mediastinum and char. Normal visualized pulmonary arteries. Normal visualized aortic arch and descending thoracic aorta. Normal visualized thoracic spine. Normal visualized ribs, clavicles, and shoulders. There is no demonstrated abnormality of the visualized soft tissue structures of the upper abdomen. RAD/Chest 1 View (Portable) IMPRESSION: Poor inspiration with some bibasilar atelectasis. Electronically Signed: Srinivasan Vergara MD at 21:51 EDT ,
[2022-01-09 21:21] LABS: Absolute Lymphocyte Count 0.65 X10^3/uL (0.83-4.51); Absolute Neutrophil Count 6.5 X10^3/uL (2.0-7.7); Basophil# 0.05 X10^3/uL; Basophil% 0.6 % (0-1); Eosinophil# 0.29 X10^3/uL; Eosinophils% 3.4 % (0-5); Hematocrit 37.6 % (40-54); Lymphocyte # 0.65 X10^3/ul (0.83-4.51); Lymphocyte % 7.6 % (19-41); Mean Corp Hgb Conc 34.6 g/dL (32-36); Mean Corpuscular Hgb 31.7 pg (27.0-32.0); Mean Corpuscular Volume 91.7 fL (80-94); Mean Platelet Vol. 9.1 fl (6.2-12.0); Monocyte# 1.05 X10^3/uL; Monocyte% 12.2 % (0-10); NRBC Flagged by Analyzer 0 % (0-5); Neutrophil # 6.52 X10^3/uL (2.7-7.7); Neutrophil % 75.7 % (47-70); Platelet Count 229 K/mm3 (150-450); RBC Distribution Width CV 13.1 % (11.6-14.6); RBC Distribution Width SD 44.3 fl (35.1-43.9); White Blood Count 8.6 K/mm3 (4.4-11.0)
[2022-01-09 21:44] LABS: Anion Gap 5 (5-15); BUN 16 mg/dL (7-18); Calcium,Total 8.6 mg/dL (8.5-10.1); Chloride 107 mmol/L (98-107); Creatinine, Serum 1.14 mg/dL (0.70-1.30); EST Glomerular Filtration Rate 66 mL/min (>60); Est Glom Filt Rate - Afr Amer 80 mL/min (>60); Estimated Creatinine Clearance 51.67 ml/min; Glucose 102 mg/dL (74-106); Potassium 4.3 mmol/L (3.5-5.1); Sodium Level 135 mmol/L (136-145); Troponin-I HS 5 pg/mL (3.0-78.0)
[2022-01-09 22:50] VITALS: BP 108/48; PULSE 78; RESP 19; O2SAT 96
== END 2022-01-09 22:57 | disposition home or self-care (01) ==
PROVIDERS: Emergency Provider Student in an Organized Health Care Education/Training Program; Visit Provider Student in an Organized Health Care Education/Training Program
DX: M19.042 Primary osteoarthritis, left hand (principal); J44.9 Chronic obstructive pulmonary disease, unspecified; M19.041 Primary osteoarthritis, right hand; M19.022 Primary osteoarthritis, left elbow; M19.021 Primary osteoarthritis, right elbow; R53.1 Weakness; I10 Essential (primary) hypertension; R51.9 Headache, unspecified; R05.9 Cough, unspecified; R06.02 Shortness of breath; Z79.82 Long term (current) use of aspirin; Z79.1 Long term (current) use of non-steroidal anti-inflammatories (NSAID); Z79.899 Other long term (current) drug therapy; Z85.46 Personal history of malignant neoplasm of prostate; Z87.891 Personal history of nicotine dependence
CPT/HCPCS: 71045; 80048; 84484; 85025; 93005; 96374; 99284

== ENCOUNTER 2022-07-17 18:25 | Emergency (ER) | payer MEDICARE, MEDICAID, SELFPAY ==
[2022-07-17 18:28] VITALS: BP 118/59; PULSE 65; RESP 18; TEMP 36.4; O2SAT 96; BMI 29.0
--- NOTE | 2022-07-17 18:45 | CT_ITS ---
INDICATION: head injury EXAMINATION: CT BRAIN - CT Head or Brain W/O Contrast Injection TECHNIQUE: Multiple axial images were obtained of the head without intravenous contrast. A radiation dose optimization technique was used for this scan. IV Contrast dosage and agent: None. COMPARISON: None FINDINGS: BRAIN PARENCHYMA: No intra- or extra-axial hemorrhage. No evidence of acute infarct. No intracranial mass or mass effect. Unremarkable white matter for age. There is preservation of the acosta/white matter interface. Posterior fossa structures are unremarkable. Carotid and vertebral atherosclerosis. CSF SPACES: Cerebral volume appropriate for age. No hydrocephalus. Basal cisterns are patent. CALVARIUM, SKULL BASE, PARANASAL SINUSES AND MASTOID AIR CELLS: Posterior skull base surgical change noted. No acute osseous finding. Diffuse acute ethmoid and maxillary sinus mucoperiosteal thickening. Mastoid air cells are clear. ORBITS: Both globes, extraocular muscles, optic nerves and retrobulbar fat appear unremarkable. ASPECTS Score for Acute Strokes: 10 CT/Brain/Head without Contrast IMPRESSION: No CT evidence of acute intracranial hemorrhage or injury. Electronically Signed: Quinton Luna MD at 19:38 EST ,
--- NOTE | 2022-07-17 18:45 | CT_ITS ---
INDICATION: neck pain EXAMINATION: CT CERVICAL SPINE - CT Spine Cervical W/O Contrast Injection TECHNIQUE: Helically acquired images were obtained of the cervical spine. 2D reformatted images were reviewed. A radiation dose optimization technique was used for this scan. IV Contrast dosage and agent: None. COMPARISON: None. FINDINGS: VERTEBRAE: No fracture or acute compression deformity. No discrete lytic or blastic abnormality. Preserved cervical lordosis with degenerative grade 1 anterolisthesis C4 on C5. Posterior element cerclage at C1-C2. Osseous fusion of posterior elements C2 C3 C4. Normal craniocervical junction and cervicothoracic junction. DISCS and SPINAL CANAL: Diffuse disc height loss with small posterior disc osteophyte most prominent at C6-C7 with mild spinal canal narrowing. Uncovering of the posterior superior disc at C4-C5 with mild spinal canal narrowing. Diffuse facet arthropathy together with listhesis cause up to severe neural foraminal stenosis at C4-C5. NECK SOFT TISSUES: No prevertebral soft tissue swelling. There is no cervical adenopathy. LUNG APICES: Clear. CT/Spine Cervical without Contras IMPRESSION: No evidence of acute cervical spinal fracture. Spondylosis and prior upper cervical posterior element surgical change as above. Electronically Signed: Quinton Luna MD at 19:45 EST Reading Location ID and State: [facility] / [place] Tel , Service support ,
--- NOTE | 2022-07-17 18:49 | EX.ED.DYSGE1 ---
HPI <JAZMYN Palmer - Last Filed: 07/17/22 20:19> History of Present Illness Chief Complaint: Fall Narrative Narrative: Patient is a 76-year-old male with history of CAD, hypertension, chronic neck and back pain. Patient presents to the emergency department after mechanical fall. Patient tripped over his cat, striking his forehead on a doorknob, turning back around striking his back and hitting the back of his head. Patient also complains of shoulder and hand pain. He denies any LOC. Patient is currently not on any blood thinners other than 81 mg aspirin. He was able get himself up. Secondary to the pain, soreness in his neck, head as well as the shoulder is here for evaluation. PFS <JAZMYN Palmer - Last Filed: 07/17/22 20:19> [facility] Medical History COPD (chronic obstructive pulmonary disease) COVID-19 Hypertension Prostate cancer Home Medications aspirin 81 mg tablet,delayed release 81 mg PO DAILY HEALTH MAINTENANCE 05/12/21 [History Last Taken 05/12/21] budesonide-formoterol HFA 160 mcg-4.5 mcg/actuation aerosol inhaler (Symbicort) 2 inh inhalation BID COPD 05/12/21 [History Last Taken 05/11/21] cholecalciferol (vitamin D3) 50 mcg (2,000 unit) capsule 50 mcg PO DAILY SUPPLEMENT 05/12/21 [History Last Taken 05/12/21] cyclobenzaprine 10 mg tablet 10 mg PO TID PRN muscle spasms 05/12/21 [History Last Taken 05/11/21] hydrochlorothiazide 25 mg tablet 25 mg PO DAILY BP 05/12/21 [History Last Taken 05/12/21] omeprazole 20 mg capsule,delayed release 20 mg PO DAILY GERD 05/12/21 [History Last Taken 05/11/21] pravastatin 80 mg tablet 80 mg PO QHS CHOLESTEROL 05/12/21 [History Last Taken 05/11/21] sertraline 100 mg tablet 150 mg PO QHS DEPRESSION 05/12/21 [History Last Taken 05/11/21] ammonium lactate 12 % topical cream 1 applic topical DAILY dry skin 01/09/22 [History Last Taken Unknown] garlic extract 500 mg capsule 500 mg PO BID supplement 01/09/22 [History Last Taken Unknown] meloxicam 7.5 mg tablet 1 tab PO DAILY arthritis 01/09/22 [History Last Taken Unknown] meloxicam 7.5 mg tablet 7.5 mg PO DAILY #20 tabs 01/09/22 [Rx Last Taken Unknown] multivitamin 1 tab PO DAILY supplement 01/09/22 [History Last Taken Unknown] zinc sulfate 66 mg tablet (Zinc-15) 66 mg PO DAILY supplement 01/09/22 [History Last Taken Unknown] Allergy/AdvReac Type Severity Reaction Status Date / Time gabapentin Allergy Other Verified 07/17/22 18:29 Surgical History H/O neck surgery Social History household members: significant other Smoking Status: Former smoker substance use type: does not use ROS <JAZMYN Palmer - Last Filed: 07/17/22 20:19> ROS ED ROS Narrative Constitutional: Negative for fever, chills, weight loss, weakness Eyes: Negative for vision loss, vision change, double vision ENT: Negative for any sore throat, ear pain, congestion Cardiovascular: Negative for any chest pain, tightness, palpitations Respiratory: Negative for any cough, sputum production, hemoptysis, dyspnea, dyspnea on exertion, orthopnea Gastrointestinal: Negative for any abdominal pain, nausea, vomiting, diarrhea, constipation, blood in stool, blood in vomit : Negative for any urinary frequency, dysuria, retention, blood in urine Muscle skeletal: Negative for any muscle joint pain, stiffness, myalgias, arthralgias, back pain. Positive for neck pain, right shoulder pain, right hand pain Neurological: Negative for any syncope, numbness or tingling, dizziness. Positive for headache Skin: Negative for any rashes, lumps, itching, abrasions, lacerations Psychiatric: Negative for any depression, anxiety, stress, suicidal ideation, homicidal ideation Hematologic: Negative for any easy bruising, excessive bruising, easy bleeding Allergies: Negative for any eczema, hives, rash EXAM <JAZMYN Palmer - Last Filed: 07/17/22 20:19> Physical Exam Narrative Exam Narrative: Vital signs reviewed. HEET: Head normocephalic atraumatic, TMs clear bilaterally. Posterior pharynx is clear, moist mucous membranes. Nares clear bilaterally. Pupils are equal round reactive to light. Negative for any hemotympanum, negative for any septal hematoma. There is no signs or symptoms of trauma. Neck: Supple with no lymphadenopathy or tenderness. No signs of meningismus, negative jolt sign. Cardiac: Regular rate and rhythm no murmurs gallops or rubs, equal peripheral pulses bilaterally. Respiratory: Lungs clear to auscultation bilaterally. No chest tenderness. Abdomen: Soft, nontender, nondistended. No abdominal bruit or pulsatile masses. No hepatosplenomegaly Extremities: No peripheral edema, no signs of gross trauma or deformity. Active full range of motion of all extremities. Patient does have pain to the anterior right shoulder however patient is able to move his shoulder. There is no deformity noted. Patient has no neurological focal deficit. No numbness or tingling. +2 radial pulse. Neuro: Cranial nerves II through XII intact, no focal neurological deficits. Skin: Clean dry and intact with no rash, purpura, petechiae, vesicles or pustules. Backs/flank: No CVA tenderness, no midline spinal tenderness, no deformity. Psych: Normal mood and affect. No SI, HI or acute psychosis. Const Vital Signs: 07/17/22 18:28 07/17/22 19:19 Temperature 97.5 F L Temperature Source Temporal Pulse Rate 65 Respiratory Rate 18 Respiratory Effort Normal Non-Labored Respiratory Depth Normal Respiratory Pattern Normal Blood Pressure 118/59 L Blood Pressure Mean 78 Pulse Ox 96 Oxygen Delivery Method Room Air Room Air <Dr. Cy Acevedo DO - Last Filed: 07/17/22 22:01> Physical Exam Const Vital Signs: 07/17/22 18:28 07/17/22 19:19 Temperature 97.5 F L Temperature Source Temporal Pulse Rate 65 Respiratory Rate 18 Respiratory Effort Normal Non-Labored Respiratory Depth Normal Respiratory Pattern Normal Blood Pressure 118/59 L Blood Pressure Mean 78 Pulse Ox 96 Oxygen Delivery Method Room Air Room Air [facility] <JAZMYN Palmer - Last Filed: 07/17/22 20:19> MDM Radiography Diagnostic Testing: Clinical Impression(s) from Imaging Studies Brain CT 07/17/22 18:45 IMPRESSION: No CT evidence of acute intracranial hemorrhage or injury. Electronically Signed: Quinton Luna MD at 19:38 EST , Cervical Spine CT 07/17/22 18:45 IMPRESSION: No evidence of acute cervical spinal fracture. Spondylosis and prior upper cervical posterior element surgical change as above. Electronically Signed: Quinton Luna MD at 19:45 EST , Hand X-Ray 07/17/22 19:14 IMPRESSION: Findings concerning for acute fourth proximal phalanx fracture. Electronically Signed: Quinton Luna MD at 19:56 EST , Shoulder X-Ray 07/17/22 19:14 IMPRESSION: No evidence of acute injury. Degenerative changes as above. Electronically Signed: Quinton Luna MD at 19:57 EST , Treatment and Re-Evaluation Narrative: All radiologic examinations were read, reviewed by the emergency department attending. From these reads, a plan of care will be put in place. Patient appears well, patient appears nontoxic, vital signs are stable. Patient presents to the emergency department with complaints of a mechanical fall injuring his head, neck, right shoulder, right hand. Patient received multiple radiologic exams. Patient CT of the brain, cervical spine were grossly unremarkable. Patient's x-rays of the right shoulder show degenerative changes however no acute process. Patient's right hand x-ray shows a concern for fourth proximal phalanx fracture. On reevaluation, the patient did have a fracture to this area 2 months ago, he is currently receiving therapy for this. However patient will be placed in a finger splint for home. He will continue his physical therapy. At this time, there is no evidence of suspect any intracranial hemorrhage, shoulder dislocation or fracture. Patient will follow-up outpatient, he was given a Iola here with relief. He will continue to take Tylenol, ibuprofen. Patient stable for discharge and given return precaution. I did give the same discharge instructions to the patient's spouse that is in the room with him. <Dr. Cy Acevedo, DO - Last Filed: 07/17/22 22:01> [facility] Narrative Medical decision making narrative: This patient was seen with a PA/BRUSH MACHINE SETTER Individually assessed they patient including history and physical. I have reviewed everything on the chart that is available and agree with the documentation provided by the PA/BRUSH MACHINE SETTER including discussion about the assessment, treatment plan, discussion, and return precautions. Patient appears well, patient appears nontoxic, vital signs are stable. Patient presents to the emergency department with complaints of a mechanical fall injuring his head, neck, right shoulder, right hand. Patient received multiple radiologic exams. Patient CT of the brain, cervical spine were grossly unremarkable. Patient's x-rays of the right shoulder on my interpretation show degenerative changes however no acute process. Patient's right hand x-ray shows a concern for fourth proximal phalanx fracture on my interpretation. On reevaluation, the patient did have a fracture to this area 2 months ago, he is currently receiving therapy for this. However patient will be placed in a finger splint for home. He will continue his physical therapy. At this time, there is no evidence of suspect any intracranial hemorrhage, shoulder dislocation or fracture. Patient will follow-up outpatient, he was given a Iola here with relief. He will continue to take Tylenol, ibuprofen. Patient stable for discharge and given return precaution. I did give the same discharge instructions to the patient's spouse that is in the room with him. Lab Data Attestation: I reviewed the patient's lab results. Radiography Diagnostic Testing: Clinical Impression(s) from Imaging Studies Brain CT 07/17/22 18:45 IMPRESSION: No CT evidence of acute intracranial hemorrhage or injury. Electronically Signed: Quinton Luna MD at 19:38 EST , Cervical Spine CT 07/17/22 18:45 IMPRESSION: No evidence of acute cervical spinal fracture. Spondylosis and prior upper cervical posterior element surgical change as above. Electronically Signed: Quinton Luna MD at 19:45 EST , Hand X-Ray 07/17/22 19:14 IMPRESSION: Findings concerning for acute fourth proximal phalanx fracture. Electronically Signed: Quinton Luna MD at 19:56 EST , Shoulder X-Ray 07/17/22 19:14 IMPRESSION: No evidence of acute injury. Degenerative changes as above. Electronically Signed: Quinton Luna MD at 19:57 EST , Treatment and Re-Evaluation Narrative: All radiologic examinations were read, reviewed by the emergency department attending. From these reads, a plan of care will be put in place. Discharge Plan Triage Chief Complaint: Fall ED Midlevel Provider: Tawanda Hendrickson ED Provider: Cy Acevedo Dx/Rx/DC Orders Clinical Impression: Fall, Head injury, Cervical muscle strain, Finger fracture Instructions: Concussion Dc, ED Fracture, Finger, Closed, ED Neck Sprain or Strain Prescriptions: No Action cyclobenzaprine [Flexeril] 10 mg Tablet 10 mg PO TID PRN (Reason: muscle spasms) sertraline 100 mg tablet 150 mg PO QHS pravastatin 80 mg tablet 80 mg PO QHS omeprazole 20 mg capsule,delayed release(DR/EC) 20 mg PO DAILY hydrochlorothiazide 25 mg tablet 25 mg PO DAILY budesonide-formoterol [Symbicort] 160-4.5 mcg/actuation HFA aerosol inhaler 2 inh INHALATION BID cholecalciferol (vitamin D3) 50 mcg (2,000 unit) Capsule 50 mcg PO DAILY aspirin [Aspirin Low-Strength] 81 mg Tablet,Delayed Release (Dr/Ec) 81 mg PO DAILY multivitamin Tablet 1 tab PO DAILY meloxicam 7.5 mg tablet 1 tab PO DAILY Label Comments: TAKE 1 TABLET BY MOUTH ONCE DAILY WITH FOOD ammonium lactate 12 % cream 1 applic TOPICAL DAILY Zinc-15 66 mg Tablet 66 mg PO DAILY garlic extract 500 mg Capsule 500 mg PO BID meloxicam 7.5 mg tablet 7.5 mg PO DAILY Qty: 20 0RF [facility] [Primary Care Provider] - Activity Restrictions/Additional Instructions: Continue to use the finger splint for comfort. Follow-up with physical therapy. Disposition Disposition: Home, Self Care Discharge Date/Time: 07/17/22 20:37
--- NOTE | 2022-07-17 19:14 | RAD_ITS ---
INDICATION: fall EXAMINATION/TECHNIQUE: X-RAY - RIGHT XR Hand Min 3 Views 3 VIEWS COMPARISON: None. FINDINGS: SOFT TISSUES: No soft tissue swelling or gas. No radiopaque foreign body. BONES/JOINTS: Foreshortened appearance of the fourth proximal phalanx with concern for osseous impaction and osseous overlap. Diffuse joint space narrowing and mild osteophyte formation... No sclerotic or destructive changes observed. RAD/Hand Min 3 Views IMPRESSION: Findings concerning for acute fourth proximal phalanx fracture. Electronically Signed: Quinton Luna MD at 19:56 EST ,
--- NOTE | 2022-07-17 19:14 | RAD_ITS ---
INDICATION: fall EXAMINATION/TECHNIQUE: X-RAY - RIGHT XR Shoulder Min 2 Views 4 VIEWS COMPARISON: None. FINDINGS: SOFT TISSUES: No soft tissue swelling or gas. No radiopaque foreign body. BONES/JOINTS: Normal glenohumeral alignment with mild degenerative change. Normal acromioclavicular alignment with moderate degenerative change. No fracture lucency. No Hill-Sachs or Bankart lesion. RAD/Shoulder min 2 Views IMPRESSION: No evidence of acute injury. Degenerative changes as above. Electronically Signed: Quinton Luna MD at 19:57 EST ,
[2022-07-17] MEDS: HYDROcodone Bitartrate/Apap 5/325 Tablet PO (19:26)
== END 2022-07-17 20:37 | disposition home or self-care (01) ==
PROVIDERS: Emergency Provider Student in an Organized Health Care Education/Training Program; Visit Provider Student in an Organized Health Care Education/Training Program
DX: S62.614A Displaced fracture of proximal phalanx of right ring finger, initial encounter for closed fracture (principal); J44.9 Chronic obstructive pulmonary disease, unspecified; S09.90XA Unspecified injury of head, initial encounter; I10 Essential (primary) hypertension; Z87.891 Personal history of nicotine dependence; I25.10 Atherosclerotic heart disease of native coronary artery without angina pectoris; M19.011 Primary osteoarthritis, right shoulder; S16.1XXA Strain of muscle, fascia and tendon at neck level, initial encounter; W01.198A Fall on same level from slipping, tripping and stumbling with subsequent striking against other object, initial encounter
CPT/HCPCS: 70450; 72125; 73030; 73130; 99283

== ENCOUNTER 2022-12-26 15:15 | Emergency (ER) | payer MEDICARE, MEDICAID, SELFPAY ==
[2022-12-26 15:16] VITALS: BP 123/83; PULSE 66; RESP 14; TEMP 36.7; O2SAT 97; BMI 32.5
--- NOTE | 2022-12-26 15:39 | EX.ED.GENINJ ---
HPI History of Present Illness Chief Complaint: Chest Other Informant: patient and spouse/S.O. Onset/Context/Timing Onset: Today and Hours Mechanism/Context: Blunt Injury and Fall Location of pain/injuries: - (Anterior chest) Quality of Pain: Dull and Aching Location: Central anterior chest Current Severity: Mild Maximum Severity: Moderate Worsened by: Movement Relieved by: Rest Associated Symptoms Associated Symptoms: Negative for Parasthesias, Weakness, Loss of function, Inability to ambulate or Loss of consciousness Narrative Narrative: Patient is a 77-year-old male who was carrying a [employer] tote. He fell. He landed on the toe. Complains of pain over the anterior central chest. He denies head trauma. Not on anticoagulant. Denies visual, ocular auditory symptoms. He denies increased shortness of breath from baseline. He has a history of COPD. He does have pain with movement and deep breathing. He denies abdominal pain. Denies back pain. He has no other symptoms or complaints. Tetanus Immunization: 5-10 years Prior similar symptoms: No Recent Illness/Hospitalization: No PFSH PFSH Medical History COPD (chronic obstructive pulmonary disease) COVID-19 Hypertension Prostate cancer Home Medications aspirin 81 mg tablet,delayed release 81 mg PO DAILY HEALTH MAINTENANCE 05/12/21 [History Last Taken 05/12/21] budesonide-formoterol HFA 160 mcg-4.5 mcg/actuation aerosol inhaler (Symbicort) 2 inh inhalation BID COPD 05/12/21 [History Last Taken 05/11/21] cholecalciferol (vitamin D3) 50 mcg (2,000 unit) capsule 50 mcg PO DAILY SUPPLEMENT 05/12/21 [History Last Taken 05/12/21] cyclobenzaprine 10 mg tablet 10 mg PO TID PRN muscle spasms 05/12/21 [History Last Taken 05/11/21] hydrochlorothiazide 25 mg tablet 25 mg PO DAILY BP 05/12/21 [History Last Taken 05/12/21] omeprazole 20 mg capsule,delayed release 20 mg PO DAILY GERD 05/12/21 [History Last Taken 05/11/21] pravastatin 80 mg tablet 80 mg PO QHS CHOLESTEROL 05/12/21 [History Last Taken 05/11/21] sertraline 100 mg tablet 150 mg PO QHS DEPRESSION 05/12/21 [History Last Taken 05/11/21] ammonium lactate 12 % topical cream 1 applic topical DAILY dry skin 01/09/22 [History Last Taken Unknown] garlic extract 500 mg capsule 500 mg PO BID supplement 01/09/22 [History Last Taken Unknown] meloxicam 7.5 mg tablet 1 tab PO DAILY arthritis 01/09/22 [History Last Taken Unknown] meloxicam 7.5 mg tablet 7.5 mg PO DAILY #20 tabs 01/09/22 [Rx Last Taken Unknown] multivitamin 1 tab PO DAILY supplement 01/09/22 [History Last Taken Unknown] zinc sulfate 66 mg tablet (Zinc-15) 66 mg PO DAILY supplement 01/09/22 [History Last Taken Unknown] hydrocodone-acetaminophen 5-325mg 5mg-325mg 1 tab PO Q6H PRN PRN Pain 3 days #10 TABLETS 12/26/22 [Rx Last Taken Unknown] Allergy/AdvReac Type Severity Reaction Status Date / Time gabapentin Allergy Other Verified 12/26/22 15:16 Surgical History H/O neck surgery Social History household members: significant other Smoking Status: Former smoker substance use type: does not use ROS ROS ED Constitutional Constitutional ED: Denies chills, fever(s), subjective, sweats or weight loss Eyes Eyes: Denies blurry vision or change in vision ENT ENT ED: Reports other Details: He denies decreased hearing or tinnitus. ; Denies ear pain, rhinorrhea or sore throat Cardiovascular Cardiovascular: Reports chest pain; Denies palpitations, paroxysmal nocturnal dyspnea or racing heartbeat Respiratory/Chest Respiratory/Chest: Denies cough, dyspnea on exertion, paroxysmal nocturnal dyspnea or sputum Gastrointestinal Gastrointestinal: Denies abdominal pain, nausea or vomiting Psychiatric Psychiatric: Denies anxiety Hematologic/Lymphatic Hematologic/Lymphatic: Denies easy bleeding or easy bruising EXAM Physical Exam Const Vital Signs: 12/26/22 15:16 12/26/22 15:47 12/26/22 15:47 Temperature 98.1 F Temperature Source Temporal Pulse Rate 66 Respiratory Rate 14 Respiratory Effort Normal Respiratory Pattern Normal Normal Blood Pressure 123/83 H Blood Pressure Mean 96 Pulse Ox 97 Oxygen Delivery Method Room Air 12/26/22 18:35 Temperature Temperature Source Pulse Rate 68 Respiratory Rate 20 H Respiratory Effort Respiratory Pattern Blood Pressure 132/76 H Blood Pressure Mean 94 Pulse Ox 96 Oxygen Delivery Method Room Air Positive well nourished, well developed and obese General Appearance ED: well developed and NAD Nutritional Appearance: obese HEENT Reports TM's clear HEENT Narrative: Head is normocephalic. There is no clinical findings to suggest any trauma or need for imaging. atraumatic Nose: Negative for septum abnormal Tympanic Membrane ED: Yes TM's clear Eyes PERRL and EOMs intact bilaterally General Eye ED: Yes other Other Details: There is no subconjunctival hemorrhage noted. Neck full ROM Neck Narrative: There is no midline posterior neck pain. Full active range of motion. Chest Wall palpation of chest normal; Negative for inspection of chest normal Chest Narrative: There is pain outpatient over the xiphoid process. There is no crepitus or subcutaneous air. Resp normal respiratory effort and clear to auscultation bilaterally Auscultation: diminished lung sounds right lower Cardio regular rhythm, S1 normal heart sound, S2 normal heart sound and no murmurs Rate: regular rate GI normal to inspection, nondistended, normoactive bowel sounds, non-tender, non-distended and no masses GI Narrative: There is no hepatosplenomegaly. Palpation: soft Back/Spine normal to inspection and no thoracic nor lumbar tenderness Neuro oriented x3, CN's II-XII intact bilaterally and moves all extremities Sherly Coma Scale: document GCS findings Spontaneous Obeys Commands Oriented 15 Sensorium / Orientation: alert Plantar Reflex: Downgoing: bilateral Psych mental status grossly normal and thought process normal Skin no rashes or lesions noted, no wounds, No skin turgor normal and no jaundice MDM MDM MDM Narrative Medical decision making narrative: Chest x-ray was obtained to evaluate for hemothorax and pneumothorax. X-ray of the sternum was obtained to evaluate for fracture of the sternum and specifically the xiphoid process. Old records were reviewed. History & Record Review Additional record(s) reviewed:: Prior outpatient record and Prior ED visit Radiography Chest X-Ray - ED: 2 View and Read by ED Physician (View x-ray of the sternum and 2 view x-ray of the chest was independent reviewed interpreted me as negative. There is no pneumothorax, hemothorax. Cardiac silhouette and size normal. No fractures of the ribs are noted. Sternal fracture reveals no fracture.) Diagnostic Testing: Clinical Impression(s) from Imaging Studies Chest X-Ray 12/26/22 15:58 IMPRESSION: Compression fracture T3 age indeterminate otherwise Normal x-ray examination of the chest. Electronically Signed: Swapnil Tineo MD at 16:55 EDT Reading Location ID and State: [facility] / [place] , Service support , Sternum X-Ray 12/26/22 15:58 IMPRESSION: Normal x-ray examination of the sternum. Electronically Signed: Swapnil Tineo MD at 16:52 EDT Reading Location ID and State: [facility] / [place] , Service support , Discharge Plan Triage Chief Complaint: Chest Other ED Provider: Frank Donato Dx/Rx/DC Orders Clinical Impression: Contusion of sternum, Bilateral contusion of ribs Instructions: ED Bruise, Rib Prescriptions: New hydrocodone-acetaminophen [hydrocodone-acetaminophen] 5-325 mg tablet 1 tab PO Q6H PRN PRN (Reason: Pain) 3 Days Qty: 10 0RF No Action cyclobenzaprine [Flexeril] 10 mg Tablet 10 mg PO TID PRN (Reason: muscle spasms) sertraline 100 mg tablet 150 mg PO QHS pravastatin 80 mg tablet 80 mg PO QHS omeprazole 20 mg capsule,delayed release(DR/EC) 20 mg PO DAILY hydrochlorothiazide 25 mg tablet 25 mg PO DAILY budesonide-formoterol [Symbicort] 160-4.5 mcg/actuation HFA aerosol inhaler 2 inh INHALATION BID cholecalciferol (vitamin D3) 50 mcg (2,000 unit) Capsule 50 mcg PO DAILY aspirin [Aspirin Low-Strength] 81 mg Tablet,Delayed Release (Dr/Ec) 81 mg PO DAILY multivitamin Tablet 1 tab PO DAILY meloxicam 7.5 mg tablet 1 tab PO DAILY Patient Comments: TAKE 1 TABLET BY MOUTH ONCE DAILY WITH FOOD ammonium lactate 12 % cream 1 applic TOPICAL DAILY Zinc-15 66 mg Tablet 66 mg PO DAILY garlic extract 500 mg Capsule 500 mg PO BID meloxicam 7.5 mg tablet 7.5 mg PO DAILY Qty: 20 0RF [facility] [Primary [facility] Provider] - Disposition Disposition: Home, Self Care
--- NOTE | 2022-12-26 15:58 | RAD_ITS ---
STUDY: X-RAY STERNUM REASON FOR EXAM: Male, 77 years old. POP xiphoid process after blunt trauma TECHNIQUE: 2 view(s) of the sternum were obtained. COMPARISON: None. FINDINGS: Normal bilateral sternoclavicular articulations. Normal manubrium. Normal sternomanubrial joint. Normal sternal body and xiphoid process. There is no demonstrated fracture of the sternum. Normal visualized anterior ribs. Normal visualized lungs. The soft tissue structures are unremarkable. RAD/Sternum min 2 Views IMPRESSION: Normal x-ray examination of the sternum. Electronically Signed: Swapnil Tineo MD at 16:52 EDT ,
--- NOTE | 2022-12-26 15:58 | RAD_ITS ---
STUDY: X-RAY CHEST REASON FOR EXAM: Male, 77 years old. Breath sounds right side after blunt trauma TECHNIQUE: Frontal and lateral views of the chest. COMPARISON: January 09, 2021 FINDINGS: The lungs are clear and expanded. There is no demonstrated pleural abnormality. Normal size heart. Normal mediastinum and char. Normal visualized pulmonary arteries. Normal visualized aortic arch and descending thoracic aorta. Compression fracture T3. Normal visualized ribs, clavicles, and shoulders. There is no demonstrated abnormality of the visualized soft tissue structures of the upper abdomen. RAD/Chest PA and Lateral IMPRESSION: Compression fracture T3 age indeterminate otherwise Normal x-ray examination of the chest. Electronically Signed: Swapnil Tineo MD at 16:55 EDT ,
[2022-12-26 18:35] VITALS: BP 132/76; PULSE 68; RESP 20; O2SAT 96
[2022-12-26] MEDS: HYDROcodone Bitartrate/Apap 5/325 Tablet PO (19:25)
== END 2022-12-26 19:27 | disposition home or self-care (01) ==
PROVIDERS: Emergency Provider Emergency Medicine; Visit Provider Emergency Medicine
DX: S20.214A Contusion of middle front wall of thorax, initial encounter (principal); J44.9 Chronic obstructive pulmonary disease, unspecified; S20.213A Contusion of bilateral front wall of thorax, initial encounter; W19.XXXA Unspecified fall, initial encounter; I10 Essential (primary) hypertension; Z79.82 Long term (current) use of aspirin; Z79.899 Other long term (current) drug therapy; Z87.891 Personal history of nicotine dependence
CPT/HCPCS: 71046; 71120; 99283

== ENCOUNTER 2023-01-22 16:33 | Emergency (ER) | payer OTHER, SELFPAY ==
[2023-01-22 16:36] VITALS: BP 132/68; PULSE 65; RESP 18; TEMP 36.3; O2SAT 99; BMI 35.9
--- NOTE | 2023-01-22 16:48 | EDS_ITS ---
<Statement entered by Tawanda Meade MD - 01/22/23 20:40> Pt seen & evaluated w/[facility]. I personally interviewed & exam the pt. I was involved in all aspects of pt's orders, interpretation of results & treatment HPI History of Present Illness Chief Complaint: Back Narrative Narrative: Patient presenting today with low back pain that he has had for the past few days. He reports that the pain worsened last night and today. He reports that about 2 weeks ago he fell down a few stairs on his back and has a bruise to his upper back. He denies any bowel/bladder incontinence, saddle paresthesia, fever, chills, and urinary symptoms. [facility] Medical History COPD (chronic obstructive pulmonary disease) COVID-19 Hypertension Prostate cancer Home Medications aspirin 81 mg tablet,delayed release 81 mg PO DAILY HEALTH MAINTENANCE 05/12/21 [History Last Taken 05/12/21] budesonide-formoterol HFA 160 mcg-4.5 mcg/actuation aerosol inhaler (Symbicort) 2 inh inhalation BID COPD 05/12/21 [History Last Taken 05/11/21] cholecalciferol (vitamin D3) 50 mcg (2,000 unit) capsule 50 mcg PO DAILY SUPPLEMENT 05/12/21 [History Last Taken 05/12/21] cyclobenzaprine 10 mg tablet 10 mg PO TID PRN muscle spasms 05/12/21 [History Last Taken 05/11/21] hydrochlorothiazide 25 mg tablet 25 mg PO DAILY BP 05/12/21 [History Last Taken 05/12/21] omeprazole 20 mg capsule,delayed release 20 mg PO DAILY GERD 05/12/21 [History Last Taken 05/11/21] pravastatin 80 mg tablet 80 mg PO QHS CHOLESTEROL 05/12/21 [History Last Taken 05/11/21] sertraline 100 mg tablet 150 mg PO QHS DEPRESSION 05/12/21 [History Last Taken 05/11/21] ammonium lactate 12 % topical cream 1 applic topical DAILY dry skin 01/09/22 [History Last Taken Unknown] garlic extract 500 mg capsule 500 mg PO BID supplement 01/09/22 [History Last Taken Unknown] meloxicam 7.5 mg tablet 1 tab PO DAILY arthritis 01/09/22 [History Last Taken Unknown] meloxicam 7.5 mg tablet 7.5 mg PO DAILY #20 tabs 01/09/22 [Rx Last Taken Unknown] multivitamin 1 tab PO DAILY supplement 01/09/22 [History Last Taken Unknown] zinc sulfate 66 mg tablet (Zinc-15) 66 mg PO DAILY supplement 01/09/22 [History Last Taken Unknown] hydrocodone-acetaminophen 5-325mg 5mg-325mg 1 tab PO Q6H PRN PRN Pain 3 days #10 TABLETS 12/26/22 [Rx Last Taken Unknown] hydrocodone-acetaminophen 5-325mg 5mg-325mg 1 tab PO Q4H PRN PRN Pain 3 days #10 TABLETS 01/22/23 [Rx Last Taken Unknown] Allergy/AdvReac Type Severity Reaction Status Date / Time gabapentin Allergy Other Verified 01/22/23 16:36 Surgical History H/O neck surgery Social History household members: significant other Smoking Status: Former smoker substance use type: does not use ROS ROS ED Constitutional Constitutional ED: Denies chills or fever(s) Cardiovascular Cardiovascular: Denies chest pain Respiratory/Chest Respiratory/Chest: Denies cough or dyspnea Gastrointestinal Gastrointestinal: Denies abdominal pain, nausea or vomiting Genitourinary Genitourinary ED: Denies dysuria, hematuria or urinary urgency Musculoskeletal Musculoskeletal: Reports back pain Neurologic Neurologic: Denies paresthesias or weakness EXAM Physical Exam Const Vital Signs: 01/22/23 16:36 Temperature 97.4 F L Temperature Source Temporal Pulse Rate 65 Respiratory Rate 18 Blood Pressure 132/68 H Blood Pressure Mean 89 Pulse Ox 99 Positive well nourished, well developed and no apparent distress General Appearance ED: well developed HEENT Reports normocephalic and head/scalp atraumatic Mouth ED: Yes moist mucous membranes normal Eyes PERRL and EOMs intact bilaterally Neck full ROM and supple Chest Wall inspection of chest normal Resp normal respiratory effort and clear to auscultation bilaterally Cardio regular rate and regular rhythm GI soft to palpation, non-tender, non-distended and no masses Back/Spine normal ROM and normal to inspection Back/Spine Narrative: Left and right paraspinal tenderness to the lumbar spine, no midline tenderness. History area of ecchymosis to upper left back near the left lateral rib cage. Extremity normal to inspection and full ROM Neuro oriented x3, CN's II-XII intact bilaterally, moves all extremities, no focal motor deficits and no sensory deficits noted Sensorium / Orientation: awake and alert Motor Exam: strength 5/5 throughout Psych mental status grossly normal and thought process normal Skin no rashes or lesions noted and no wounds MDM MDM MDM Narrative Medical decision making narrative: Patient presenting today due to lumbar back pain that started over the last few days and has gotten increasingly more painful. He reports that he fell down the steps about 2 weeks ago but did not began having pain in his back until just a few days ago. He does have right and left paraspinal tenderness to the lumbar spine without any midline spinal tenderness. Neurological exam is WNL. Patient has intact strength and sensation in his upper and lower extremities. Patient also has ecchymosis to the left lateral rib cage/upper back on the left side. X-ray of the lumbar spine and left rib cage will be obtained to rule out fracture. X-rays are negative. Patient was given Tylenol here and will be given a prescription for [place]. He will be discharged home in stable condition and is comfortable with plan. He is to follow-up with his PCP. Radiography X-Ray: Read by ED Physician and Read by Radiologist Diagnostic Testing: Clinical Impression(s) from Imaging Studies Ribs w/Chest X-Ray 01/22/23 17:03 IMPRESSION: No acute findings in the chest or left ribs. Electronically Signed: Fuentes Gusman MD at 17:52 EDT , Lumbar Spine X-Ray 01/22/23 17:20 IMPRESSION: Degenerative changes of the spine, as detailed above. Electronically Signed: Fuentes Gusman MD at 17:47 EDT , Discharge Plan Triage Chief Complaint: Back ED Midlevel Provider: Lily Dominguez ED Provider: Tawanda Meade Dx/Rx/DC Orders Clinical Impression: Contusion of ribs, Lumbar back sprain Instructions: ED Back Sprain/Strain Prescriptions: New hydrocodone-acetaminophen 5-325 mg tablet 1 tab PO Q4H PRN PRN (Reason: Pain) 3 Days Qty: 10 0RF No Action cyclobenzaprine [Flexeril] 10 mg Tablet 10 mg PO TID PRN (Reason: muscle spasms) sertraline 100 mg tablet 150 mg PO QHS pravastatin 80 mg tablet 80 mg PO QHS omeprazole 20 mg capsule,delayed release(DR/EC) 20 mg PO DAILY hydrochlorothiazide 25 mg tablet 25 mg PO DAILY budesonide-formoterol [Symbicort] 160-4.5 mcg/actuation HFA aerosol inhaler 2 inh INHALATION BID cholecalciferol (vitamin D3) 50 mcg (2,000 unit) Capsule 50 mcg PO DAILY aspirin [Aspirin Low-Strength] 81 mg Tablet,Delayed Release (Dr/Ec) 81 mg PO DAILY multivitamin Tablet 1 tab PO DAILY meloxicam 7.5 mg tablet 1 tab PO DAILY Patient Comments: TAKE 1 TABLET BY MOUTH ONCE DAILY WITH FOOD ammonium lactate 12 % cream 1 applic TOPICAL DAILY Zinc-15 66 mg Tablet 66 mg PO DAILY garlic extract 500 mg Capsule 500 mg PO BID meloxicam 7.5 mg tablet 7.5 mg PO DAILY Qty: 20 0RF hydrocodone-acetaminophen [hydrocodone-acetaminophen] 5-325 mg tablet 1 tab PO Q6H PRN PRN (Reason: Pain) 3 Days Qty: 10 0RF [facility] [Primary [facility] Provider[facility] - 3-5 Days Activity Restrictions/Additional Instructions: Follow-up with your PCP and return for any worsening of your symptoms. Disposition Disposition: Home, Self Care Discharge Date/Time: 01/22/23 19:06
[2023-01-22] MEDS: Acetaminophen 325 MG Tablet 650 MG PO (16:58)
--- NOTE | 2023-01-22 17:03 | RAD_ITS ---
EXAM: XR LEFT RIBS AND AP CHEST, 3 OR MORE VIEWS CLINICAL INDICATION: fall TECHNIQUE: Frontal and oblique views of the left ribs and frontal view of the chest. COMPARISON: 12.26.22 FINDINGS: LUNGS AND PLEURAL SPACES: Unremarkable. No consolidation or edema. No pneumothorax. No effusion. HEART: Unremarkable. Cardiac silhouette not enlarged. MEDIASTINUM: Central airways and mediastinal contour are unremarkable. BONES/JOINTS: Degenerative findings of the left shoulder. No evidence of displaced rib fractures. RAD/Ribs Uni Min 3V w/PA Chest IMPRESSION: No acute findings in the chest or left ribs. Electronically Signed: Fuentes Gusman MD at 17:52 EDT ,
--- NOTE | 2023-01-22 17:20 | RAD_ITS ---
STUDY: X-RAY - LUMBAR SPINE REASON FOR EXAM: Male, 77 years old. back pain TECHNIQUE: XR Spine Lumbar 2 or 3 Views COMPARISON: None FINDINGS: Normal lumbar lordosis. There is no substantial scoliosis. There is a normal alignment of the vertebrae. There is multilevel endplate spondylosis of the lumbar vertebrae. There is multi-level degenerative disc disease with multi-level disc space narrowing. There are atherosclerotic vascular calcifications. The soft tissue structures are unremarkable. RAD/Lumbar Spine 2 or 3 Views IMPRESSION: Degenerative changes of the spine, as detailed above. Electronically Signed: Fuentes Gusman MD at 17:47 EDT ,
== END 2023-01-22 19:06 | disposition home or self-care (01) ==
PROVIDERS: Emergency Provider Emergency Medicine; Visit Provider Emergency Medicine
DX: S33.5XXA Sprain of ligaments of lumbar spine, initial encounter (principal); J44.9 Chronic obstructive pulmonary disease, unspecified; W10.9XXA Fall (on) (from) unspecified stairs and steps, initial encounter; S20.222A Contusion of left back wall of thorax, initial encounter; I10 Essential (primary) hypertension; S20.229A Contusion of unspecified back wall of thorax, initial encounter; Z79.82 Long term (current) use of aspirin; Z79.899 Other long term (current) drug therapy; Z87.891 Personal history of nicotine dependence
CPT/HCPCS: 71101; 72100; 99283

== ENCOUNTER 2023-10-16 09:07 | Emergency (ER) | payer OTHER, SELFPAY ==
[2023-10-16 09:08] VITALS: BP 126/80; PULSE 64; RESP 18; TEMP 36.6; O2SAT 96; BMI 34.9
--- NOTE | 2023-10-16 09:34 | ED.VIS.DYS ---
HPI History of Present Illness Chief Complaint: Shortness of Breath Detail of Chief Complaint: Shortness of breath Informant: patient Narrative Narrative: Patient presents to the emergency department complaint of shortness of breath that has had for least 2 weeks. He has had a cough. He complains of exertional dyspnea. Denies chest pain. Denies recent travel or surgery. He had no fever. Patient also mentions he had some pain in his left lower groin area and was worried about a hernia. The pains been there for at least a month. Denies nausea or vomiting. Patient has history of COPD and history of prostate cancer as well as hypertension. [facility] Medical History COPD (chronic obstructive pulmonary disease) COVID-19 Hypertension Prostate cancer Home Medications aspirin 81 mg tablet,delayed release 81 mg PO DAILY HEALTH MAINTENANCE 05/12/21 [History Last Taken 05/12/21] budesonide-formoterol HFA 160 mcg-4.5 mcg/actuation aerosol inhaler (Symbicort) 2 inh inhalation BID COPD 05/12/21 [History Last Taken 05/11/21] cholecalciferol (vitamin D3) 50 mcg (2,000 unit) capsule 50 mcg PO DAILY SUPPLEMENT 05/12/21 [History Last Taken 05/12/21] cyclobenzaprine 10 mg tablet 10 mg PO TID PRN muscle spasms 05/12/21 [History Last Taken 05/11/21] hydrochlorothiazide 25 mg tablet 25 mg PO DAILY BP 05/12/21 [History Last Taken 05/12/21] omeprazole 20 mg capsule,delayed release 20 mg PO DAILY GERD 05/12/21 [History Last Taken 05/11/21] pravastatin 80 mg tablet 80 mg PO QHS CHOLESTEROL 05/12/21 [History Last Taken 05/11/21] sertraline 100 mg tablet 150 mg PO QHS DEPRESSION 05/12/21 [History Last Taken 05/11/21] ammonium lactate 12 % topical cream 1 applic topical DAILY dry skin 01/09/22 [History Last Taken Unknown] garlic extract 500 mg capsule 500 mg PO BID supplement 01/09/22 [History Last Taken Unknown] meloxicam 7.5 mg tablet 1 tab PO DAILY arthritis 01/09/22 [History Last Taken Unknown] meloxicam 7.5 mg tablet 7.5 mg PO DAILY #20 tabs 01/09/22 [Rx Last Taken Unknown] multivitamin 1 tab PO DAILY supplement 01/09/22 [History Last Taken Unknown] zinc sulfate 66 mg tablet (Zinc-15) 66 mg PO DAILY supplement 01/09/22 [History Last Taken Unknown] hydrocodone-acetaminophen 5-325mg 5mg-325mg 1 tab PO Q6H PRN PRN Pain 3 days #10 TABLETS 12/26/22 [Rx Last Taken Unknown] hydrocodone-acetaminophen 5-325mg 5mg-325mg 1 tab PO Q4H PRN PRN Pain 3 days #10 TABLETS 01/22/23 [Rx Last Taken Unknown] doxycycline monohydrate 100 mg capsule 100 mg PO BID #20 CAPSULES 10/16/23 [Rx Last Taken Unknown] prednisone 20 mg tablet 20 mg PO BID #10 tabs 10/16/23 [Rx Last Taken Unknown] Allergy/AdvReac Type Severity Reaction Status Date / Time gabapentin Allergy Other Verified 10/16/23 09:08 Surgical History H/O neck surgery Social History household members: significant other Smoking Status: Former smoker substance use type: does not use ROS ROS ED Review of Systems ROS Unobtainable: other Constitutional Constitutional ED: Reports lethargy; Denies chills, fever(s), sweats or weight loss Eyes Eyes: Denies blurry vision, change in vision or diplopia ENT ENT ED: Denies rhinorrhea or sore throat Cardiovascular Cardiovascular: Denies chest pain, orthopnea or racing heartbeat Respiratory/Chest Respiratory/Chest: Reports cough, dyspnea and dyspnea on exertion; Denies orthopnea or sputum Gastrointestinal Gastrointestinal: Reports abdominal pain; Denies diarrhea, nausea or vomiting Genitourinary Genitourinary ED: Denies dysuria, hematuria or urinary frequency Musculoskeletal Musculoskeletal: Denies arthralgias, back pain, myalgias or neck pain Integumentary Denies abscess, Abrasions or rash Neurologic Neurologic: Denies headache(s) or weakness Psychiatric Psychiatric: Denies anxiety, depression or suicidal thoughts Endocrine Endocrinology: Denies polydipsia, polyphagia or polyuria Hematologic/Lymphatic Hematologic/Lymphatic: Denies easy bleeding, easy bruising or lymphadenopathy Allergic/Immunologic Allergic/Immunologic ED: Denies mouth swelling, tongue swelling or urticaria EXAM Physical Exam Const Vital Signs: 10/16/23 09:08 10/16/23 09:49 10/16/23 09:33 Temperature 97.8 F Temperature Source Temporal Pulse Rate 64 86 Respiratory Rate 18 18 Respiratory Effort Respiratory Depth Respiratory Pattern Normal Blood Pressure 126/80 H Blood Pressure Mean 95 Pulse Ox 96 Oxygen Delivery Method Room Air Room Air 10/16/23 09:55 Temperature Temperature Source Pulse Rate Respiratory Rate Respiratory Effort Normal Respiratory Depth Normal Respiratory Pattern Normal Blood Pressure Blood Pressure Mean Pulse Ox Oxygen Delivery Method Room Air Positive well nourished and well developed General Appearance ED: well developed and NAD HEENT Reports TM's clear and moist mucous membranes normocephalic and atraumatic; Negative for trauma or tenderness Tympanic Membrane ED: Yes TM's clear Eyes PERRL and EOMs intact bilaterally General Eye ED: Negative for pale conjunctiva or scleral icterus Neck no lymphadenopathy, supple and no JVD General: Negative for tenderness Chest Wall inspection of chest normal and palpation of chest normal Chest: Negative for tenderness Resp normal respiratory effort and clear to auscultation bilaterally Effort and Inspection: Negative for respiratory distress or pain with movement Auscultation: rhonchi, wheezes and diminished lung sounds Cardio regular rate, regular rhythm, S1 normal heart sound, S2 normal heart sound and no murmurs Peripheral Pulses: pulses 2+ throughout GI normal to inspection, nondistended, normoactive bowel sounds, soft to palpation, non-distended and no masses GI Narrative: Mild tenderness over left lower quadrant. No rebound, rigidity, or pineal signs. No mass palpated. No hernias noted on exam. Back/Spine no CVA tenderness and no thoracic nor lumbar tenderness Extremity normal to inspection General Extremety ED: Negative for edema General Extremity: Negative for edema Neuro oriented x3, CN's II-XII intact bilaterally, no sensory deficits noted and gait normal Sensorium / Orientation: awake, alert, oriented to person, oriented to place and oriented to time Motor Exam: strength 5/5 throughout and strength abnormal Psych mental status grossly normal Skin no rashes or lesions noted and no wounds MDM MDM MDM Narrative Medical decision making narrative: Patient presents with increasing shortness of breath over the last 2 weeks. Cough with occasional sputum production. He denies chest pain. In the differential would be COPD exacerbation versus coronary artery disease versus PE or pneumonia. IV line established. CBC with differential count of 8.6 with hemoglobin 13.6 and platelet count of 238. Chemistries unremarkable. Troponin was normal at 6. D-dimer when corrected for age was normal at 0.50. 1 view chest x-ray unremarkable. I did obtain a CT scan of the abdomen pelvis given the patient's complaint of abdominal pain to the left lower quadrant to rule out diverticulitis or other acute disease and no significant findings were noted other than some gallstones. Patient was given a DuoNeb aerosol and was given Solu-Medrol. He felt improved. Clinically he looks well and he is not hypoxic. Will discharge to home. I suspect a COPD exacerbation. Will start him on doxycycline and prednisone. 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 Advised to return if increasing shortness of breath or condition should worsen anyway. Lab Data Attestation: I reviewed the patient's lab results. Labs: Laboratory Results - last 24 hr 10/16/23 09:45 WBC 8.6 RBC 4.45 L Hgb 13.6 Hct 40.6 MCV 91.2 MCH 30.6 MCHC 33.5 RDW Std Deviation 44.9 H RDW Coeff of Yuki 13.4 Plt Count 238 MPV 9.1 Immature Gran % (Auto) 0.900 Neut % (Auto) 54.7 Lymph % (Auto) 19.9 [place] % (Auto) 9.7 Eos % (Auto) 13.6 H Baso % (Auto) 1.2 H Absolute Neuts (auto) 4.7 Absolute Lymphs (auto) 1.71 Nucleated RBC % 0 D-Dimer Quant (PE/DVT) 0.50 H Sodium 139 Potassium 3.8 Chloride 107 Carbon Dioxide 25.0 Anion Gap 7 BUN 18 Creatinine 1.01 Estim Creat Clear Calc 68.28 Est GFR (MDRD) Af Amer 91 Est GFR (MDRD) Non-Af 76 BUN/Creatinine Ratio 17.8 Glucose 135 H Calcium 9.0 Troponin I High Sens 6 Radiography Diagnostic Testing: Clinical Impression(s) from Imaging Studies Chest X-Ray 10/16/23 10:10 IMPRESSION: No radiographic evidence of acute cardiopulmonary disease. Electronically Signed: Rubio Hector MD at 10:21 EDT , Abdomen/Pelvis CT 10/16/23 11:24 IMPRESSION: 1. No focal acute inflammatory process. 2. Multiple gallstones. 3. Small nonobstructing stone in the right kidney without evidence of hydronephrosis. 4. Hepatomegaly. 5. Atherosclerotic vascular calcifications. Electronically Signed: Rubio Hector MD at 12:22 EDT , 1 view chest x-ray obtained interpreted by myself as no evidence of infiltrate or pneumothorax or acute disease process. Radiology in agreement. EKG Initial EKG: Attestation: I personally reviewed and interpreted this EKG as follows: Comments: Sinus rhythm with rate of 60 bpm with first-degree block and right bundle branch block Discharge Plan Triage Chief Complaint: Shortness of Breath ED Provider: Mago Soni Dx/Rx/DC Orders Clinical Impression: COPD exacerbation, Abdominal pain Instructions: ED COPD Flare, ED Abdominal Pain Unkn Cause Male... Prescriptions: New doxycycline monohydrate 100 mg capsule 100 mg PO BID Qty: 20 0RF prednisone 20 mg tablet 20 mg PO BID Qty: 10 0RF No Action cyclobenzaprine [Flexeril] 10 mg Tablet 10 mg PO TID PRN (Reason: muscle spasms) sertraline 100 mg tablet 150 mg PO QHS pravastatin 80 mg tablet 80 mg PO QHS omeprazole 20 mg capsule,delayed release(DR/EC) 20 mg PO DAILY hydrochlorothiazide 25 mg tablet 25 mg PO DAILY budesonide-formoterol [Symbicort] 160-4.5 mcg/actuation HFA aerosol inhaler 2 inh INHALATION BID cholecalciferol (vitamin D3) 50 mcg (2,000 unit) Capsule 50 mcg PO DAILY aspirin [Aspirin Low-Strength] 81 mg Tablet,Delayed Release (Dr/Ec) 81 mg PO DAILY multivitamin Tablet 1 tab PO DAILY meloxicam 7.5 mg tablet 1 tab PO DAILY Patient Comments: TAKE 1 TABLET BY MOUTH ONCE DAILY WITH FOOD ammonium lactate 12 % cream 1 applic TOPICAL DAILY Zinc-15 66 mg Tablet 66 mg PO DAILY garlic extract 500 mg Capsule 500 mg PO BID meloxicam 7.5 mg tablet 7.5 mg PO DAILY Qty: 20 0RF hydrocodone-acetaminophen [hydrocodone-acetaminophen] 5-325 mg tablet 1 tab PO Q6H PRN PRN (Reason: Pain) 3 Days Qty: 10 0RF hydrocodone-acetaminophen 5-325 mg tablet 1 tab PO Q4H PRN PRN (Reason: Pain) 3 Days Qty: 10 0RF [facility] Provider[facility] [facility] [[facility] Provider] - Activity Restrictions/Additional Instructions: Follow-up with your percussion instructor within the next 5 to 7 days Disposition Disposition: Home, Self Care
[2023-10-16 09:49] VITALS: PULSE 86; RESP 18
[2023-10-16] MEDS: Ipratropium/Albuterol Sulfate 3 ML AMPUL.NEB INHALATION (09:49)
[2023-10-16] MEDS: MethylPREDNISolone 125 MG/2 ML Vial IV (09:51)
[2023-10-16 09:55] VITALS: O2SAT 95
[2023-10-16 09:58] LABS: Absolute Lymphocyte Count 1.71 X10^3/uL (0.83-4.51); Absolute Neutrophil Count 4.7 X10^3/uL (2.0-7.7); Basophil% 1.2 % (0-1); Eosinophil# 1.17 X10^3/uL; Eosinophils% 13.6 % (0-5); Hematocrit 40.6 % (40-54); Hemoglobin 13.6 g/dL (13.0-16.5); Lymphocyte # 1.71 X10^3/ul (0.83-4.51); Lymphocyte % 19.9 % (19-41); Mean Corp Hgb Conc 33.5 g/dL (32-36); Mean Corpuscular Hgb 30.6 pg (27.0-32.0); Mean Corpuscular Volume 91.2 fL (80-94); Mean Platelet Vol. 9.1 fl (6.2-12.0); Monocyte# 0.83 X10^3/uL; Monocyte% 9.7 % (0-10); NRBC Flagged by Analyzer 0 % (0-5); Neutrophil # 4.69 X10^3/uL (2.7-7.7); Neutrophil % 54.7 % (47-70); Platelet Count 238 K/mm3 (150-450); RBC Distribution Width CV 13.4 % (11.6-14.6); RBC Distribution Width SD 44.9 fl (35.1-43.9); Red Blood Count 4.45 M/mm3 (4.6-6.2); White Blood Count 8.6 K/mm3 (4.4-11.0)
--- NOTE | 2023-10-16 10:10 | RAD_ITS ---
INDICATION: dyspnea EXAMINATION/TECHNIQUE: X-RAY - XR Chest 1 View COMPARISON: No relevant prior comparison study available FINDINGS: LINES/DEVICES: None. LUNGS: No consolidation, edema or effusion. No pneumothorax. MEDIASTINUM AND CARDIOVASCULAR STRUCTURES: Cardiac silhouette not enlarged. Central airways and mediastinal contour are unremarkable. BONES AND SOFT TISSUES: Unremarkable. RAD/Chest 1 View (Portable) IMPRESSION: No radiographic evidence of acute cardiopulmonary disease. Electronically Signed: Rubio Hector MD at 10:21 EDT ,
[2023-10-16 10:21] LABS: Anion Gap 7 (5-15); BUN 18 mg/dL (7-18); BUN/Creat Ratio 17.8 RATIO (10-20); Chloride 107 mmol/L (98-107); Creatinine, Serum 1.01 mg/dL (0.70-1.30); EST Glomerular Filtration Rate 76 mL/min (>60); Est Glom Filt Rate - Afr Amer 91 mL/min (>60); Estimated Creatinine Clearance 68.28 ml/min; Glucose 135 mg/dL (74-106); Potassium 3.8 mmol/L (3.5-5.1); Sodium Level 139 mmol/L (136-145); Troponin-I HS 6 pg/mL (3.0-78.0)
--- NOTE | 2023-10-16 11:24 | CT_ITS ---
INDICATION: Left lower quadrant pain EXAMINATION: CT ABDOMEN AND PELVIS WITHOUT CONTRAST TECHNIQUE: Helically acquired images were obtained of the abdomen and pelvis without oral or IV contrast. A radiation dose optimization technique was used for this scan. IV Contrast dosage and agent: None. Oral contrast: None. RADIATION DOSAGE (If Supplied By Facility): CTDIvol = ( 18.66 ) mGy, DLP = ( 955.55 ) mGycm COMPARISON: No relevant prior comparison study available FINDINGS: LOWER CHEST: Lung bases are clear. No cardiomegaly or pericardial effusion. LIVER: Hepatomegaly and mild hepatic steatosis. No focal mass. GALLBLADDER AND BILIARY TREE: Multiple gallstones. No gallbladder distension or wall edema. No intra- or extrahepatic biliary ductal dilation. PANCREAS: No focal cystic or solid mass. SPLEEN: Normal size without focal cystic or solid mass. ADRENAL GLANDS: No nodules. KIDNEYS AND URETERS: 3 mm nonobstructing stone in the upper pole of the right kidney. No hydronephrosis. PERITONEUM: No ascites or free air. No other fluid collection. BOWEL: No evidence of acute appendicitis. Normal in caliber small bowel loops. Fecal retention. No focal inflammatory change. LYMPH NODES: No enlarged mesenteric or retroperitoneal lymph nodes. VESSELS: Atherosclerotic calcifications of the abdominal aorta without evidence of aneurysm. Calcifications of the origin of the celiac axis and SMA with moderate stenosis of the SMA. URINARY BLADDER: Mild thickening of the bladder wall likely due to underdistention. Cystitis is likely. REPRODUCTIVE ORGANS: Slightly prominent prostate. ABDOMINAL WALL: Multilevel degenerative changes of the spine. Mild anterior wedging of T12 and L1 likely chronic. BONES: No lytic or blastic abnormality. CT/Abdomen/Pelvis without Cont IMPRESSION: 1. No focal acute inflammatory process. 2. Multiple gallstones. 3. Small nonobstructing stone in the right kidney without evidence of hydronephrosis. 4. Hepatomegaly. 5. Atherosclerotic vascular calcifications. Electronically Signed: Rubio Hector MD at 12:22 EDT ,
[2023-10-16 13:08] VITALS: BP 139/73
[2023-10-16 13:14] VITALS: BP 139/73; PULSE 68; RESP 24; TEMP 36.1; O2SAT 94
[2023-10-16 17:22] LABS: BNP,B-Type NATRIURETIC PEPTIDE 30.2 pg/mL (0-100)
== END 2023-10-16 13:16 | disposition home or self-care (01) ==
PROVIDERS: Emergency Provider Emergency Medicine; Visit Provider Emergency Medicine
DX: J44.1 Chronic obstructive pulmonary disease with (acute) exacerbation (principal); R10.9 Unspecified abdominal pain; I10 Essential (primary) hypertension; Z87.891 Personal history of nicotine dependence; R06.09 Other forms of dyspnea; K80.20 Calculus of gallbladder without cholecystitis without obstruction; N20.0 Calculus of kidney; R16.0 Hepatomegaly, not elsewhere classified
CPT/HCPCS: 71045; 74176; 80048; 83880; 84484; 85025; 85379; 93005; 94640; 96374; 99284; A4216

== ENCOUNTER 2024-04-06 11:05 | Emergency (ER) | payer OTHER, SELFPAY ==
[2024-04-06 11:06] VITALS: BP 136/74; PULSE 65; RESP 18; TEMP 36.6; O2SAT 97
[2024-04-06 11:07] VITALS: BMI 35.7
--- NOTE | 2024-04-06 11:35 | RAD_ITS ---
HISTORY: fall and rib pain. TECHNIQUE: XR Chest 2 Views. COMPARISON: 10/16/2023. FINDINGS: CARDIOMEDIASTINAL BORDERS: Cardiac silhouette within normal limits in size. Mediastinal contour also unchanged mild calcification and tortuosity of the aorta. LUNGS: Coarse chronic interstitial markings in the lung bases, likely COPD with mild scarring and hyperinflation. PLEURA: No pleural effusion or pneumothorax seen. OSSEOUS STRUCTURES: Degenerative change. RAD/Chest PA and Lateral IMPRESSION: No acute cardiopulmonary process identified. Electronically Signed: Jaycee Corado MD at 11:58 EDT ,
--- NOTE | 2024-04-06 11:50 | RAD_ITS ---
HISTORY: fall and pain. TECHNIQUE: XR Shoulder Min 2 Views. COMPARISON: 07/17/2022. FINDINGS: BONES : No acute fracture identified. Mineralization unremarkable. JOINTS: No dislocation. Moderate degenerative change. SOFT TISSUES: Right lung apex clear. RAD/Shoulder min 2 Views IMPRESSION: No acute fracture or dislocation identified in the right shoulder. Electronically Signed: Jaycee Corado MD at 12:17 EDT ,
--- NOTE | 2024-04-06 11:50 | EX.ED.GENINJ ---
HPI History of Present Illness Chief Complaint: Chest Other Detail of Chief Complaint: went to sat down and missed the chair fell to the ground. Informant: patient and spouse/S.O. Onset/Context/Timing Onset: Days Mechanism/Context: Blunt Injury and Fall Location of pain/injuries: Right shoulder Location: Right lower chest wall rib cage. Current Severity: Mild Maximum Severity: Mild Associated Symptoms Associated Symptoms: Negative for Parasthesias, Weakness, Loss of function, Inability to ambulate, Loss of consciousness or Amnesia Narrative Narrative: 78-year-old male history of COPD and hypertension. Went to sit down on [place] caught the edge of the chair which then slipped out from under him and he fell to the ground injuring his right rib cage and right shoulder. No LOC. No head injury. No blood thinners. Prior similar symptoms: No Recent Illness/Hospitalization: No PFSH [facility] Medical History COPD (chronic obstructive pulmonary disease) COVID-19 Prostate cancer Hypertension Home Medications ?Medication ?Instructions ?Recorded ?Last Taken ?Type aspirin 81 mg tablet,delayed 81 mg PO DAILY HEALTH MAINTENANCE 05/12/21 05/12/21 History release budesonide-formoterol HFA 160 2 inh inhalation BID COPD 05/12/21 05/11/21 History mcg-4.5 mcg/actuation aerosol inhaler (Symbicort) cholecalciferol (vitamin D3) 50 50 mcg PO DAILY SUPPLEMENT 05/12/21 05/12/21 History mcg (2,000 unit) capsule cyclobenzaprine 10 mg tablet 10 mg PO TID PRN muscle spasms 05/12/21 05/11/21 History hydrochlorothiazide 25 mg tablet 25 mg PO DAILY BP 05/12/21 05/12/21 History omeprazole 20 mg capsule,delayed 20 mg PO DAILY GERD 05/12/21 05/11/21 History release pravastatin 80 mg tablet 80 mg PO QHS CHOLESTEROL 05/12/21 05/11/21 History sertraline 100 mg tablet 150 mg PO QHS DEPRESSION 05/12/21 05/11/21 History ammonium lactate 12 % topical cream 1 applic topical DAILY dry skin 01/09/22 Unknown History garlic extract 500 mg capsule 500 mg PO BID supplement 01/09/22 Unknown History meloxicam 7.5 mg tablet 1 tab PO DAILY arthritis 01/09/22 Unknown History meloxicam 7.5 mg tablet 7.5 mg PO DAILY #20 tabs 01/09/22 Unknown Rx multivitamin 1 tab PO DAILY supplement 01/09/22 Unknown History zinc sulfate 66 mg tablet (Zinc-15) 66 mg PO DAILY supplement 01/09/22 Unknown History hydrocodone-acetaminophen 5-325mg 1 tab PO Q6H PRN PRN Pain 3 days 12/26/22 Unknown Rx 5mg-325mg #10 TABLETS hydrocodone-acetaminophen 5-325mg 1 tab PO Q4H PRN PRN Pain 3 days 01/22/23 Unknown Rx 5mg-325mg #10 TABLETS doxycycline monohydrate 100 mg 100 mg PO BID #20 CAPSULES 10/16/23 Unknown Rx capsule prednisone 20 mg tablet 20 mg PO BID #10 tabs 10/16/23 Unknown Rx hydrocodone-acetaminophen 5-325mg 1 tab PO Q6H PRN PRN Pain 4 days 04/06/24 Unknown Rx 5mg-325mg #14 TABLETS Allergy/AdvReac Type Severity Reaction Status Date / Time gabapentin Allergy Other Verified 04/06/24 11:05 Surgical History H/O neck surgery Social History household members: significant other Smoking Status: Former smoker substance use type: does not use ROS ROS ED ROS Narrative Denies recent illness. Review of Systems ROS Unobtainable: Denies due to encephalopathy Constitutional Constitutional ED: Denies chills or fever(s) Eyes Eyes: Denies blurry vision ENT ENT ED: Denies ear pain Cardiovascular Cardiovascular: Reports chest pain and other Details: Chest wall pain and rib cage post fall. ; Denies palpitations or racing heartbeat Respiratory/Chest Respiratory/Chest: Denies cough or dyspnea Gastrointestinal Gastrointestinal: Denies abdominal pain Genitourinary Genitourinary ED: Denies dysuria or hematuria Musculoskeletal Musculoskeletal: Denies arthralgias Integumentary Denies abscess Neurologic Neurologic: Denies headache(s) Psychiatric Psychiatric: Denies anxiety Endocrine Endocrinology: Denies cold intolerance Hematologic/Lymphatic Hematologic/Lymphatic: Denies easy bleeding or easy bruising Allergic/Immunologic Allergic/Immunologic ED: Denies mouth swelling EXAM Physical Exam Narrative Exam Narrative: 78-year-old male vital signs stable afebrile. H EENT exam pupils round reactive to light. Extra motions are intact. No signs of trauma to face or scalp. Neck nontender. Back nontender. No bruising. Lungs coarse breath sounds. COPD. Few scattered wheezes. Heart regular rhythm rate about 65 no murmur. Chest wall is mild tenderness right lower rib cage. No ecchymosis or bruising. No subcu air or crepitus. Abdomen soft nontender. No bruising. No right upper quadrant pain. No peritoneal signs. Pelvic girdle intact. Moving all 4 extremities. Limited range of motion of right shoulder due to discomfort. No bony deformity or obvious dislocation. Neurologically is awake alert. Answering questions following commands. Hard of hearing. Const Vital Signs: 04/06/24 11:06 Temperature 98 F Temperature Source Temporal Pulse Rate 65 Respiratory Rate 18 Blood Pressure 136/74 H Blood Pressure Mean 94 Pulse Ox 97 Oxygen Delivery Method Room Air Positive well nourished and well developed; Negative for cachectic, contractures or unkempt General Appearance ED: well developed and NAD; Negative for unkempt, cachectic or contractures Nutritional Appearance: Negative for cachectic HEENT atraumatic; Negative for trauma or tenderness Eyes PERRL and EOMs intact bilaterally Neck full ROM General: Negative for tenderness Chest Wall inspection of chest normal and palpation of chest normal Breast/Axilla Inspection: Negative for other Resp normal respiratory effort and No clear to auscultation bilaterally Resp Narrative: Few scattered wheezes. COPD history. No distress. Auscultation: wheezes Cardio regular rhythm, S1 normal heart sound, S2 normal heart sound and no murmurs Palpation: Negative for palpable S3 or palpable S4 Rate: regular rate GI normal to inspection, nondistended, normoactive bowel sounds, non-tender, non-distended and no masses GI Narrative: No bruising. Auscultation: normoactive bowel sounds Palpation: soft; Negative for tender or guarding Back/Spine normal to inspection and no thoracic nor lumbar tenderness General Back: Negative for CVA tenderness Thoracic Spine / Upper Back: Negative for thoracic spinal tenderness Extremity normal to inspection; Negative for full ROM Extremity Narrative: Mild tenderness right shoulder. No deformity. Limited range of motion due to discomfort. General Extremety ED: Negative for deformity, edema or tenderness General Extremity: Negative for deformity or edema Neuro oriented x3, CN's II-XII intact bilaterally, moves all extremities and no focal motor deficits [place] Coma Scale: document GCS findings Spontaneous Obeys Commands Oriented 15 Sensorium / Orientation: alert, oriented to person, oriented to place and oriented to time; Negative for orientation impaired, lethargic or stuporous Motor Exam: strength 5/5 throughout Psych mental status grossly normal and thought process normal Appearance: Negative for unkempt Attitude: No agitated Mood & Affect: Negative for depressed, anxious or tearful Skin no rashes or lesions noted, no wounds, skin turgor normal and no jaundice General Skin Exam: Negative for other Rashes: No rashes noted Trauma: Negative for abrasion Wounds: Negative for wounds noted MDM MDM MDM Narrative Medical decision making narrative: 78-year-old male 1 to sit down in chair on 2 days ago fell injuring his right rib cage and right shoulder. Chest x-ray will be obtained to rule out rib fractures versus contusion. Right shoulder she will be obtained suspect contusion. Will be given 1 [place] for pain. Thank you repeat exam patient doing well at 12:15 PM. We did go over his x-ray results. To be discharged home use [place] for pain if he does not have any other pain medications at home. History & Record Review Discussion w/independent historian: Patient and Family Additional record(s) reviewed:: Prior inpatient record, Prior outpatient record, Prior ED visit and Prior labs Radiography Chest X-Ray - ED: 2 View, Read by ED Physician, Heart, Lungs, Mediastinum, Bony Structures, No Acute Disease and Chronic Changes Diagnostic Testing: Clinical Impression(s) from Imaging Studies Chest X-Ray 04/06/24 11:35 IMPRESSION: No acute cardiopulmonary process identified. Electronically Signed: Jaycee Corado MD at 11:58 EDT , Chest x-ray, 2 views, interpreted by myself shows chronic changes. COPD. Normal cardiac silhouette. No obvious rib fractures. No pneumothorax. Right shoulder x-ray, 2 views, interpreted by myself shows shows no acute fracture or dislocation. Arthritis. Chronic changes. Discharge Plan Triage Chief Complaint: Chest Other ED Provider: Remy Godoy Dx/Rx/DC Orders Clinical Impression: Fall, Contusion of right chest wall, Contusion of right shoulder Instructions: ED Contusion, Upper Extremity, ED Rib Contusion or Minor Fracture Prescriptions: New hydrocodone-acetaminophen 5-325 mg tablet 1 tab PO Q6H PRN PRN (Reason: Pain) 4 Days Qty: 14 0RF No Action cyclobenzaprine [Flexeril] 10 mg Tablet 10 mg PO TID PRN (Reason: muscle spasms) sertraline 100 mg tablet 150 mg PO QHS pravastatin 80 mg tablet 80 mg PO QHS omeprazole 20 mg capsule,delayed release(DR/EC) 20 mg PO DAILY hydrochlorothiazide 25 mg tablet 25 mg PO DAILY budesonide-formoterol [Symbicort] 160-4.5 mcg/actuation HFA aerosol inhaler 2 inh INHALATION BID cholecalciferol (vitamin D3) 50 mcg (2,000 unit) Capsule 50 mcg PO DAILY aspirin [Aspirin Low-Strength] 81 mg Tablet,Delayed Release (Dr/Ec) 81 mg PO DAILY multivitamin Tablet 1 tab PO DAILY meloxicam 7.5 mg tablet 1 tab PO DAILY Patient Comments: TAKE 1 TABLET BY MOUTH ONCE DAILY WITH FOOD ammonium lactate 12 % cream 1 applic TOPICAL DAILY Zinc-15 66 mg Tablet 66 mg PO DAILY garlic extract 500 mg Capsule 500 mg PO BID meloxicam 7.5 mg tablet 7.5 mg PO DAILY Qty: 20 0RF hydrocodone-acetaminophen [hydrocodone-acetaminophen] 5-325 mg tablet 1 tab PO Q6H PRN PRN (Reason: Pain) 3 Days Qty: 10 0RF hydrocodone-acetaminophen 5-325 mg tablet 1 tab PO Q4H PRN PRN (Reason: Pain) 3 Days Qty: 10 0RF doxycycline monohydrate 100 mg capsule 100 mg PO BID Qty: 20 0RF prednisone 20 mg tablet 20 mg PO BID Qty: 10 0RF [facility] - 1 Week if not improving Activity Restrictions/Additional Instructions: Ice to your right shoulder and your chest wall. There are no obvious rib fractures on your chest x-ray but that does not mean you do not have a small rib fractures that we cannot see on the x-ray. Ice to your chest wall. Use a pillow to brace your ribs. [place] for pain. This should progressively improve but will be sore for 1 to 2 weeks and then should start feeling better. Print Language: Moldovan Disposition Disposition: Home, Self Care
[2024-04-06] MEDS: HYDROcodone Bitartrate/Apap 5/325 Tablet PO (11:56)
[2024-04-06 12:26] VITALS: BP 125/76; PULSE 74; RESP 20; TEMP 36.8; O2SAT 99
== END 2024-04-06 12:26 | disposition home or self-care (01) ==
PROVIDERS: Emergency Provider Emergency Medicine; Visit Provider Emergency Medicine
DX: S20.211A Contusion of right front wall of thorax, initial encounter (principal); J44.9 Chronic obstructive pulmonary disease, unspecified; S40.011A Contusion of right shoulder, initial encounter; I10 Essential (primary) hypertension; W07.XXXA Fall from chair, initial encounter; Z79.51 Long term (current) use of inhaled steroids; Z79.82 Long term (current) use of aspirin; Z79.1 Long term (current) use of non-steroidal anti-inflammatories (NSAID); Z79.899 Other long term (current) drug therapy; Z87.891 Personal history of nicotine dependence
CPT/HCPCS: 71046; 73030; 99283

== ENCOUNTER 2024-08-14 18:25 | Emergency (ER) | payer OTHER, SELFPAY ==
[2024-08-14 18:26] VITALS: BP 121/76; PULSE 71; RESP 16; TEMP 36.9; O2SAT 96
[2024-08-14 18:45] VITALS: BMI 34.3
[2024-08-14 18:53] VITALS: O2SAT 95
--- NOTE | 2024-08-14 19:52 | ED.VIS.DYS ---
HPI History of Present Illness Chief Complaint: Shortness of Breath Informant: patient and spouse/S.O. Narrative Narrative: Presents cough dyspnea wheeze cannot tell me a specific timeframe. No fevers no myalgias. Remote tobacco no diagnosed COPD in his paperwork has chronic bronchitis however is on albuterol and montelukast. He does not wear home oxygen. No chest pains. No abdominal pains. Prior similar symptoms: Yes PFSH PFSH Medical History Dementia COPD (chronic obstructive pulmonary disease) COVID-19 Prostate cancer Hypertension Home Medications ?Medication ?Instructions ?Recorded ?Last Taken ?Type budesonide-formoterol HFA 160 2 inh inhalation BID COPD 05/12/21 05/11/21 History mcg-4.5 mcg/actuation aerosol inhaler (Symbicort) hydrochlorothiazide 25 mg tablet 25 mg PO DAILY BP 05/12/21 05/12/21 History omeprazole 20 mg capsule,delayed 40 mg PO DAILY GERD 05/12/21 05/11/21 History release pravastatin 80 mg tablet 80 mg PO QHS CHOLESTEROL 05/12/21 05/11/21 History sertraline 100 mg tablet 100 mg PO QHS DEPRESSION 05/12/21 05/11/21 History ammonium lactate 12 % topical cream 1 applic topical DAILY dry skin 01/09/22 Unknown History garlic extract 500 mg capsule 500 mg PO BID supplement 01/09/22 Unknown History meloxicam 7.5 mg tablet 1 tab PO DAILY arthritis 01/09/22 Unknown History multivitamin 1 tab PO DAILY supplement 01/09/22 Unknown History acetaminophen 325 mg capsule 650 mg PO TID 08/14/24 Unknown History albuterol sulfate 90 mcg/actuation 2 puff inhalation Q4H PRN PRN 08/14/24 Unknown History aerosol inhaler wheezing diclofenac sodium 1 % topical gel 2 ea topical 4X/DAY 08/14/24 Unknown History (Arthritis Pain (diclofenac)) donepezil 5 mg tablet 5 mg PO DAILY 08/14/24 Unknown History fluticasone propionate 50 2 spray intranasal DAILY 08/14/24 Unknown History mcg/actuation nasal spray,suspension montelukast 10 mg tablet 10 mg PO DAILY 08/14/24 Unknown History prednisone 20 mg tablet 60 mg (3 x 20 mg) PO DAILY #12 08/14/24 Unknown Rx TABLETS Allergy/AdvReac Type Severity Reaction Status Date / Time gabapentin Allergy Other Verified 08/14/24 18:27 Surgical History H/O neck surgery Social History household members: significant other Smoking Status: Former smoker substance use type: does not use ROS ROS ED Constitutional Constitutional ED: Denies chills, fever(s) or sweats ENT ENT ED: Denies sore throat Cardiovascular Cardiovascular: Denies chest pain, leg edema, palpitations or racing heartbeat Respiratory/Chest Respiratory/Chest: Reports cough and dyspnea; Denies dyspnea on exertion Gastrointestinal Gastrointestinal: Denies abdominal pain, diarrhea, nausea or vomiting Genitourinary Genitourinary ED: Denies dysuria, hematuria or urinary frequency Musculoskeletal Musculoskeletal: Denies back pain, extremity pain or neck pain Integumentary Denies rash or wounds Neurologic Neurologic: Denies headache(s), paresthesias or weakness EXAM Physical Exam Const Vital Signs: 08/14/24 18:26 08/14/24 18:53 08/14/24 19:56 Temperature 98.4 F Temperature Source Temporal Pulse Rate 71 68 Respiratory Rate 16 18 Respiratory Effort Normal Non-Labored Respiratory Depth Normal Respiratory Pattern Normal Blood Pressure 121/76 H Blood Pressure Mean 91 Pulse Ox 96 Oxygen Delivery Method Room Air Room Air 08/14/24 20:25 08/14/24 22:00 Temperature 98.9 F Temperature Source Oral Pulse Rate 89 89 Respiratory Rate 18 16 Respiratory Effort Respiratory Depth Respiratory Pattern Blood Pressure 124/68 H 123/74 H Blood Pressure Mean 86 90 Pulse Ox 95 98 Oxygen Delivery Method Room Air Positive well nourished and well developed General Appearance ED: well developed and NAD HEENT Reports moist mucous membranes normocephalic and atraumatic Eyes General Eye ED: Yes normal appearance of both eyes Neck full ROM Chest Wall Chest: Negative for tenderness Resp Resp Narrative: Expiratory bilateral wheeze noted exam. No distress. Effort and Inspection: Negative for respiratory distress Cardio regular rate, regular rhythm and no murmurs Peripheral Pulses: pulses 2+ throughout GI normal to inspection, nondistended, normoactive bowel sounds and non-tender Palpation: Negative for guarding or rebound tenderness present Extremity normal to inspection General Extremety ED: Negative for edema or tenderness General Extremity: Negative for edema Neuro oriented x3 and no sensory deficits noted Sensorium / Orientation: awake and alert Skin no rashes or lesions noted and no wounds MDM MDM MDM Narrative Medical decision making narrative: Interventions / MDM: Differential diagnosis: COPD exacerbation, wheezing Diagnosis considered but do not suspect: Pneumonia however x-ray negative. My EKG interpretation: N/A Imaging independently reviewed and interpreted by myself: 2 view chest x-ray: No acute process. External documents reviewed: N/A Test considered but not ordered:N/A ED course: Vital signs stable no hypoxia wheezing on exam. Nursing obtain labs. Will check chest x-ray, viral swabs. Aerosol treatments and Solu-Medrol given. Will reevaluate. 2114: X-ray negative labs stable viral swabs negative. Wheezing improved. No productive sputum therefore no indication for antibiotics with his COPD history. Will ambulate with a pulse ox will plan to continue burst steroids for additional 4 days with continued inhaler use. 2199: Ambulated pulse ox 94%. Will continue burst steroids. He continues inhaler. Outpatient follow with his doctor. All questions were answered. Re-evaluation: stable Disposition discussed with patient/family/significant other: Patient and spouse Case discussed with consulting clinician: N/A This note was generated with [employer] dictation software. It may contain incorrect words, spelling, and punctuation that were not noted in checking the note before signing. Lab Data Attestation: I reviewed the patient's lab results. Labs: Laboratory Results - last 24 hr 08/14/24 19:05 WBC 8.9 RBC 4.41 L Hgb 13.7 Hct 39.7 L MCV 90.0 MCH 31.1 MCHC 34.5 RDW Std Deviation 44.6 H RDW Coeff of [place]uki 13.6 Plt Count 287 MPV 9.6 Immature Gran % (Auto) 0.800 Neut % (Auto) 56.7 Lymph % (Auto) 23.6 [place] % (Auto) 9.8 Eos % (Auto) 8.1 H Baso % (Auto) 1.0 Absolute Neuts (auto) 5.1 Absolute Lymphs (auto) 2.10 Nucleated RBC % 0 Sodium 138 Potassium 3.6 Chloride 102 Carbon Dioxide 20.3 L Anion Gap 15 BUN 20 H Creatinine 0.93 Estim Creat Clear Calc 73.48 Est GFR (MDRD) Non-Af 83 BUN/Creatinine Ratio 21.0 H Glucose 125 H Calcium 9.4 Radiography Diagnostic Testing: Clinical Impression(s) from Imaging Studies Chest X-Ray 08/14/24 20:05 IMPRESSION: No acute airspace abnormality. [facility] Triage Chief Complaint: Shortness of Breath ED Provider: Saturnino Barnett Dx/Rx/DC Orders Clinical Impression: COPD exacerbation, Acute bronchospasm Instructions: ED COPD Flare Prescriptions: New prednisone 20 mg tablet 60 mg PO DAILY Qty: 12 0RF No Action sertraline 100 mg tablet 100 mg PO QHS pravastatin 80 mg tablet 80 mg PO QHS omeprazole 20 mg capsule,delayed release(DR/EC) 40 mg PO DAILY hydrochlorothiazide 25 mg tablet 25 mg PO DAILY budesonide-formoterol [Symbicort] 160-4.5 mcg/actuation HFA aerosol inhaler 2 inh INHALATION BID multivitamin Tablet 1 tab PO DAILY meloxicam 7.5 mg tablet 1 tab PO DAILY Patient Comments: TAKE 1 TABLET BY MOUTH ONCE DAILY WITH FOOD ammonium lactate 12 % cream 1 applic TOPICAL DAILY garlic extract 500 mg Capsule 500 mg PO BID acetaminophen 325 mg capsule 650 mg PO TID donepezil 5 mg tablet 5 mg PO DAILY albuterol sulfate 90 mcg/actuation HFA aerosol inhaler 2 puff INHALATION Q4H PRN PRN (Reason: wheezing) diclofenac sodium [Arthritis Pain (diclofenac)] 1 % gel 2 ea topical 4X/DAY montelukast 10 mg tablet 10 mg PO DAILY fluticasone propionate 50 mcg/actuation spray,suspension 2 spray INTRANASAL DAILY [facility] [Primary [facility] Provider[facility] - 1 Week Activity Restrictions/Additional Instructions: Chest x-ray negative. COVID, flu, RSV negative. Labs are all stable. Continue inhaler as needed for wheezing. Take and finish your prednisone over the next 4 days. Follow-up with your doctor. Print Language: Gambian Disposition Disposition: Home, Self Care Discharge Date/Time: 08/14/24 22:22
[2024-08-14] MEDS: Ipratropium/Albuterol Sulfate 3 ML AMPUL.NEB INHALATION (19:55)
[2024-08-14 19:56] VITALS: PULSE 68; RESP 18
[2024-08-14] MEDS: MethylPREDNISolone 125 MG/2 ML Vial IV (20:00)
[2024-08-14 20:04] LABS: Absolute Neutrophil Count 5.1 X10^3/uL (2.0-7.7); Basophil# 0.09 X10^3/uL; Eosinophil# 0.72 X10^3/uL; Eosinophils% 8.1 % (0-5); Hematocrit 39.7 % (40-54); Hemoglobin 13.7 g/dL (13.0-16.5); Lymphocyte % 23.6 % (19-41); Mean Corp Hgb Conc 34.5 g/dL (32-36); Mean Corpuscular Hgb 31.1 pg (27.0-32.0); Mean Platelet Vol. 9.6 fl (6.2-12.0); Monocyte# 0.87 X10^3/uL; Monocyte% 9.8 % (0-10); NRBC Flagged by Analyzer 0 % (0-5); Neutrophil # 5.06 X10^3/uL (2.7-7.7); Neutrophil % 56.7 % (47-70); Platelet Count 287 K/mm3 (150-450); RBC Distribution Width CV 13.6 % (11.6-14.6); RBC Distribution Width SD 44.6 fl (35.1-43.9); Red Blood Count 4.41 M/mm3 (4.6-6.2); White Blood Count 8.9 K/mm3 (4.4-11.0)
--- NOTE | 2024-08-14 20:05 | RAD_ITS ---
PROCEDURE: CHEST PA AND LATERAL REASON FOR EXAM: COUGH TECHNIQUE: Frontal and lateral views of the chest. COMPARISON: None. FINDINGS: Cardiomediastinal silhouette is within normal limits. No focal consolidation, pleural effusion or sizable pneumothorax. RAD/Chest PA and Lateral IMPRESSION: No acute airspace abnormality. Reading Location: [facility]
[2024-08-14 20:25] VITALS: BP 124/68; PULSE 89; RESP 18; O2SAT 95
[2024-08-14 21:02] LABS: Anion Gap 15 (5-15); BUN 20 mg/dL (4-19); Calcium,Total 9.4 mg/dL (7.6-11.0); Carbon Dioxide 20.3 mmol/L (21.0-32.0); Chloride 102 mmol/L (98-108); Creatinine, Serum 0.93 mg/dL (0.70-1.20); EST Glomerular Filtration Rate 83 (>60); Estimated Creatinine Clearance 73.48 ml/min (50-250); Glucose 125 mg/dL (70-99); Potassium 3.6 mmol/L (3.3-5.1); Sodium Level 138 mmol/L (133-145)
[2024-08-14 21:42] VITALS: O2SAT 97
[2024-08-14 22:00] VITALS: BP 123/74; PULSE 89; RESP 16; TEMP 37.2; O2SAT 98
== END 2024-08-14 22:22 | disposition home or self-care (01) ==
PROVIDERS: Emergency Provider Emergency Medicine; Visit Provider Emergency Medicine
DX: J44.1 Chronic obstructive pulmonary disease with (acute) exacerbation (principal); F03.90 Unspecified dementia, unspecified severity, without behavioral disturbance, psychotic disturbance, mood disturbance, and anxiety; J98.01 Acute bronchospasm; I10 Essential (primary) hypertension; Z87.891 Personal history of nicotine dependence
CPT/HCPCS: 71046; 80048; 85025; 87631; 94640; 96374; 99284; A4216

== ENCOUNTER 2024-11-01 18:18 | Emergency (ER) | payer OTHER, SELFPAY ==
[2024-11-01 18:19] VITALS: BP 137/67; PULSE 78; RESP 18; TEMP 35.9; O2SAT 98
--- NOTE | 2024-11-01 18:23 | EX.ED.DYSGE1 ---
HPI History of Present Illness Chief Complaint: Other, Pain/Inj Narrative Narrative: Patient presents with right-sided neck pain that began today. Patient states that this gradually gotten worse throughout the day today. He states it is constant. Patient states it is sharp. Patient states it is on the right side of his neck. Patient states it is worse with hitting bumps in the road. Patient denies any paresthesias or weakness. Patient states the pain radiates down his right arm. Patient denies any trauma or injury. [facility] Medical History Dementia COPD (chronic obstructive pulmonary disease) COVID-19 Prostate cancer Hypertension Home Medications ?Medication ?Instructions ?Recorded ?Last Taken ?Type budesonide-formoterol HFA 160 2 inh inhalation BID COPD 05/12/21 05/11/21 History mcg-4.5 mcg/actuation aerosol inhaler (Symbicort) hydrochlorothiazide 25 mg tablet 25 mg PO DAILY BP 05/12/21 05/12/21 History omeprazole 20 mg capsule,delayed 40 mg PO DAILY GERD 05/12/21 05/11/21 History release pravastatin 80 mg tablet 80 mg PO QHS CHOLESTEROL 05/12/21 05/11/21 History sertraline 100 mg tablet 100 mg PO QHS DEPRESSION 05/12/21 05/11/21 History ammonium lactate 12 % topical cream 1 applic topical DAILY dry skin 01/09/22 Unknown History garlic extract 500 mg capsule 500 mg PO BID supplement 01/09/22 Unknown History meloxicam 7.5 mg tablet 1 tab PO DAILY arthritis 01/09/22 Unknown History multivitamin 1 tab PO DAILY supplement 01/09/22 Unknown History acetaminophen 325 mg capsule 650 mg PO TID 08/14/24 Unknown History albuterol sulfate 90 mcg/actuation 2 puff inhalation Q4H PRN PRN 08/14/24 Unknown History aerosol inhaler wheezing diclofenac sodium 1 % topical gel 2 ea topical 4X/DAY 08/14/24 Unknown History (Arthritis Pain (diclofenac)) donepezil 5 mg tablet 5 mg PO DAILY 08/14/24 Unknown History fluticasone propionate 50 2 spray intranasal DAILY 08/14/24 Unknown History mcg/actuation nasal spray,suspension montelukast 10 mg tablet 10 mg PO DAILY 08/14/24 Unknown History prednisone 20 mg tablet 60 mg (3 x 20 mg) PO DAILY #12 08/14/24 Unknown Rx TABLETS hydrocodone-acetaminophen 5-325mg 1 tab PO Q6H PRN PRN Pain 3 days 11/01/24 Unknown Rx 5mg-325mg #10 TABLETS Allergy/AdvReac Type Severity Reaction Status Date / Time gabapentin Allergy Other Verified 11/01/24 18:19 Surgical History H/O neck surgery Social History household members: significant other Smoking Status: Former smoker substance use type: does not use ROS ROS ED Constitutional Constitutional ED: Denies chills or fever(s) Eyes Eyes: Denies blurry vision or change in vision ENT ENT ED: Reports rhinorrhea; Denies sore throat Cardiovascular Cardiovascular: Denies chest pain or palpitations Respiratory/Chest Respiratory/Chest: Denies cough or dyspnea Gastrointestinal Gastrointestinal: Denies nausea or vomiting Genitourinary Genitourinary ED: Denies dysuria or hematuria Musculoskeletal Musculoskeletal: Reports neck pain; Denies back pain Integumentary Denies abscess or rash Neurologic Neurologic: Reports headache(s); Denies weakness Allergic/Immunologic Allergic/Immunologic ED: Denies mouth swelling or urticaria EXAM Physical Exam Const Vital Signs: 11/01/24 18:19 11/01/24 18:50 11/01/24 19:54 Temperature 96.7 F L 98.7 F Temperature Source Temporal Pulse Rate 78 67 Respiratory Rate 18 16 Respiratory Effort Normal Respiratory Pattern Normal Blood Pressure 137/67 H 114/74 Blood Pressure Mean 90 87 Pulse Ox 98 97 Oxygen Delivery Method Room Air Positive well nourished and well developed General Appearance ED: well developed and NAD HEENT Reports moist mucous membranes Neck Neck Narrative: There is tenderness of the right cervical paraspinal muscles. There is mild midline tenderness. There is no bony crepitance or step-off. There is a well-healed midline scar. There is no erythema or warmth. Range of motion was slightly limited in all motions of the spine secondary to pain. Resp normal respiratory effort and clear to auscultation bilaterally Cardio regular rate and regular rhythm GI non-tender and non-distended Palpation: soft Extremity normal to inspection General Extremety ED: Negative for edema or tenderness General Extremity: Negative for edema Neuro oriented x3 and CN's II-XII intact bilaterally Sensorium / Orientation: alert Motor Exam: strength 5/5 throughout Psych mental status grossly normal MDM MDM MDM Narrative Medical decision making narrative: Differential diagnosis includes cervical strain, spondylolisthesis, degenerative arthritis, and cervical radiculopathy. CT scan of the cervical spine will be obtained to assess for spondylolisthesis and degenerative arthritis History & Record Review Additional record(s) reviewed:: Prior ED visit Radiography Diagnostic Testing: Clinical Impression(s) from Imaging Studies Cervical Spine CT 11/01/24 18:41 IMPRESSION: NO ACUTE CERVICAL FRACTURE. Chronic and ancillary findings as above. Reading Location: [place] [id number] CT scan of the cervical spine was obtained. There is no acute fracture or spondylolisthesis. There is no soft tissue swelling. There are degenerative changes noted. This was interpreted by the radiologist and was also independently reviewed by myself. Treatment and Re-Evaluation :: Patient was given a dose of [place] here. Patient was feeling better on reevaluation. Patient was given a prescription for short course of [place]. Patient was instructed to use ice to the area. Patient was instructed to follow-up with his primary care physician in 5 to 7 days. Patient understood and was agreeable with the plan. All questions were answered. Discharge Plan Triage Chief Complaint: Other, Pain/Inj ED Provider: Rodrigo Peck Dx/Rx/DC Orders Clinical Impression: Acute cervical myofascial strain, Hypertension Instructions: ED Neck Sprain or Strain Prescriptions: New hydrocodone-acetaminophen 5-325 mg tablet 1 tab PO Q6H PRN PRN (Reason: Pain) 3 Days Qty: 10 0RF No Action sertraline 100 mg tablet 100 mg PO QHS pravastatin 80 mg tablet 80 mg PO QHS omeprazole 20 mg capsule,delayed release(DR/EC) 40 mg PO DAILY hydrochlorothiazide 25 mg tablet 25 mg PO DAILY budesonide-formoterol [Symbicort] 160-4.5 mcg/actuation HFA aerosol inhaler 2 inh INHALATION BID multivitamin Tablet 1 tab PO DAILY meloxicam 7.5 mg tablet 1 tab PO DAILY Patient Comments: TAKE 1 TABLET BY MOUTH ONCE DAILY WITH FOOD ammonium lactate 12 % cream 1 applic TOPICAL DAILY garlic extract 500 mg Capsule 500 mg PO BID acetaminophen 325 mg capsule 650 mg PO TID donepezil 5 mg tablet 5 mg PO DAILY albuterol sulfate 90 mcg/actuation HFA aerosol inhaler 2 puff INHALATION Q4H PRN PRN (Reason: wheezing) diclofenac sodium [Arthritis Pain (diclofenac)] 1 % gel 2 ea topical 4X/DAY montelukast 10 mg tablet 10 mg PO DAILY fluticasone propionate 50 mcg/actuation spray,suspension 2 spray INTRANASAL DAILY prednisone 20 mg tablet 60 mg PO DAILY Qty: 12 0RF [facility]errals: [facility] [Primary Care Provider] - 5-7 Days Print Language: Syriac Disposition Disposition: Home, Self Care Discharge Date/Time: 11/01/24 19:56
--- NOTE | 2024-11-01 18:41 | CT_ITS ---
PROCEDURE: SPINE CERVICAL WITHOUT CONTRAS 11/01/2024 REASON FOR EXAM: INJURY/PAIN TECHNIQUE: Cervical spine CT without contrast. Coronal and Sagittal reconstruction series were provided. One or more dose reduction techniques were used (e.g., Automated exposure control, adjustment of the mA and/or kV according to patient size, use of iterative reconstruction technique RADIATION DOSE SUMMARY: CTDlvol: 24.0 mGy DLP: 42.62 mGycm COMPARISON: 07/17/2022. FINDINGS: No evidence of acute fracture or dislocation. Grade 1 anterolisthesis of C4 on C5. C1-C2 posterior element cerclage. [id number] discogenic degenerative changes similar to the prior CT. Atherosclerosis is present. CT/Spine Cervical without Contras IMPRESSION: NO ACUTE CERVICAL FRACTURE. Chronic and ancillary findings as above. Reading Location: [place] [id number]
[2024-11-01] MEDS: HYDROcodone Bitartrate/Apap 5/325 Tablet PO (18:47)
[2024-11-01 18:50] VITALS: BMI 30.9
[2024-11-01 19:54] VITALS: BP 114/74; PULSE 67; RESP 16; TEMP 37.1; O2SAT 97
== END 2024-11-01 19:56 | disposition home or self-care (01) ==
PROVIDERS: Emergency Provider Emergency Medicine; Visit Provider Emergency Medicine
DX: S16.1XXA Strain of muscle, fascia and tendon at neck level, initial encounter (principal); J44.9 Chronic obstructive pulmonary disease, unspecified; X58.XXXA Exposure to other specified factors, initial encounter; I10 Essential (primary) hypertension; Z87.891 Personal history of nicotine dependence; Z85.46 Personal history of malignant neoplasm of prostate
CPT/HCPCS: 72125; 99283